=== PATIENT | male | born 2000 | race Caucasian/White ===

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

== ENCOUNTER 2018-02-23 17:51 | Inpatient (IN) | payer OTHER ==
[2018-02-23] MEDS ORDERED: Sodium Chloride 0.9% 2.5 ML Syringe FLUSH PRN (18:05)
[2018-02-23] MEDS ORDERED: Sodium Chloride 0.9% 10 ML Syringe FLUSH PRN (18:05)
[2018-02-23] MEDS ORDERED: Sodium Chloride 0.9% 1,000 ML IV ONE (18:05)
[2018-02-23] MEDS ORDERED: Ketorolac 30 MG/ML SDV IVPUSH ONE (18:22)
--- NOTE | 2018-02-23 18:23 | EDM.PDOC ---
ED HPI GENERAL MEDICAL PROBLEM - General Chief Complaint: Abdominal Pain Time Seen by Provider: 02/23/18 18:22 Source of Information: Reports: Patient History Limitations: Reports: No Limitations - History of Present Illness INITIAL COMMENTS - FREE TEXT/NARRATIVE: HISTORY AND PHYSICAL: History of present illness: Patient is a 17-year-old male who presents to the ED today for abdominal pain that started this morning around 7 AM. He states that he has had pain like this on and off for the past year or so and has seen multiple family medicine doctors who have said he has constipation. He said he has had a few x-rays in the past to evaluate this pain, but has not been happy with the answer he has been given. He says the pain is in his left lower quadrant and suprapubic area, and since this morning has been constant and sharp. In the past to set this pain has come and gone but today is the worst it's ever been. He states that he did have one episode of vomiting earlier today, and had blood in his vomit. He states he has not been able to eat or drink today due to a loss of appetite. He denies fever, chills, or weight changes. He denies scrotal tenderness, constipation, diarrhea, blood in his stool, burning with urination, difficulties urinating, or hesitancy to urinate. Review of systems: As per history of present illness and below otherwise all systems reviewed and negative. Past medical history: As per history of present illness and as reviewed below otherwise noncontributory. Surgical history: As per history of present illness and as reviewed below otherwise noncontributory. Social history: No reported history of drug or alcohol abuse. Family history: As per history of present illness and as reviewed below otherwise noncontributory. Physical exam: General: Patient is sitting comfortably on exam table, in no acute distress. HEENT: Atraumatic, normocephalic, pupils reactive, negative for conjunctival pallor or scleral icterus, mucous membranes moist, throat clear, neck supple, nontender, trachea midline. Lungs: Clear to auscultation, breath sounds equal bilaterally, chest nontender. Heart: S1S2, regular, negative for clicks, rubs, or JVD. Abdomen: Moderate pain to deep palpation of the suprapubic and left lower quadrant Soft, nondistended. Negative for masses or hepatosplenomegaly. Negative for costovertebral tenderness. Pelvis: Stable nontender. Genitourinary: Deferred. Rectal: Deferred. Extremities: Atraumatic, negative for cords or calf pain. Neurovascular unremarkable. Neuro: Awake, alert, oriented. Cranial nerves II through XII unremarkable. Cerebellum unremarkable. Motor and sensory unremarkable throughout. Exam nonfocal. Notes: 194 - discussed patient with Dr. Negro who will come in to evaluate patient. Diagnostics: [CBC, CMP, UA, abdominal and pelvic CT] Therapeutics: [IV normal saline, Toradol 30 mg IV] Impression: Mechanical small bowel obstruction Plan: Dr. Negro evaluated patient and admitted to inpatient. Definitive disposition and diagnosis as appropriate pending reevaluation and review of above. lower abdomen Pain Score (Numeric/FACES): 9 - Related Data Allergies Allergy/AdvReac Type Severity Reaction Status Date / Time Penicillins Allergy Hives Verified 02/23/18 18:16 Home Meds: Home Meds . [No Known Home Meds] 02/23/18 [History] Past Medical History - Past Health History Medical/Surgical History: Denies Medical/Surgical History Social & Family History - Family History Family Medical History: Noncontributory - Tobacco Use Smoking Status *Q: Never Smoker - Recreational Drug Use Recreational Drug Use: No ED ROS GENERAL - Review of Systems Review Of Systems: ROS reveals no pertinent complaints other than HPI. ED EXAM, GI/ABD - Physical Exam Exam: See Below (see dictation) Course - Vital Signs Last Recorded V/S: Last Vital Signs Temp 36.3 C 02/23/18 19:28 Pulse 76 02/23/18 19:28 Resp 18 02/23/18 19:28 BP 164/86 H 02/23/18 19:28 Pulse Ox 98 02/23/18 19:28 - Orders/Labs/Meds Orders: Active Orders 24 hr Category Date Time Status Patient Status [ADT] Stat ADT 02/23/18 20:52 Active Abdomen Pelvis w Cont [CT] Stat Exams 02/23/18 18:22 Taken UA W/MICROSCOPIC [URIN] Stat Lab 02/23/18 18:05 Ordered Sodium Chloride 0.9% [Saline Flush] Med 02/23/18 18:05 Active 10 ml FLUSH ASDIRECTED PRN Sodium Chloride 0.9% [Saline Flush] Med 02/23/18 18:05 Active 2.5 ml FLUSH ASDIRECTED PRN Saline Lock Insert [OM.PC] Stat Oth 02/23/18 18:04 Ordered Medication Orders Sodium Chloride (Saline Flush) 10 ml FLUSH ASDIRECTED PRN PRN Reason: Keep Vein Open Last Admin: 02/23/18 18:11 Dose: 10 ml Sodium Chloride (Saline Flush) 2.5 ml FLUSH ASDIRECTED PRN PRN Reason: Keep Vein Open Last Admin: 02/23/18 18:12 Dose: 2.5 ml Labs: Laboratory Tests 02/23/18 02/23/18 02/23/18 Range/Units 18:05 18:11 18:11 WBC 10.54 (4.0-11.0) K/uL RBC 5.24 (4.50-5.90) M/uL Hgb 15.7 (13.0-17.0) g/dL Hct 43.8 (38.0-50.0) % MCV 83.6 (80.0-98.0) fL MCH 30.0 (27.0-32.0) pg MCHC 35.8 (31.0-37.0) g/dL RDW Std Deviation 37.8 (28.0-62.0) fl RDW Coeff of Nahomy 13 (11.0-15.0) % Plt Count 233 (150-400) K/uL MPV 9.30 (7.40-12.00) fL Neut % (Auto) 69.5 (48.0-80.0) % Lymph % (Auto) 22.4 (16.0-40.0) % [place] % (Auto) 6.4 (0.0-15.0) % Eos % (Auto) 1.4 (0.0-7.0) % Baso % (Auto) 0.3 (0.0-1.5) % Neut # (Auto) 7.3 H (1.4-5.7) K/uL Lymph # (Auto) 2.4 (0.6-2.4) K/uL [place] # (Auto) 0.7 (0.0-0.8) K/uL Eos # (Auto) 0.2 (0.0-0.7) K/uL Baso # (Auto) 0.0 (0.0-0.1) K/uL Nucleated RBC % 0.0 /100WBC Nucleated RBCs # 0 K/uL Sodium 138 (136-148) mmol/L Potassium 3.9 (3.5-5.1) mmol/L Chloride 102 (98-107) mmol/L Carbon Dioxide 27.1 (21.0-32.0) mmol/L BUN 15 (7.0-18.0) mg/dL Creatinine 1.0 (0.8-1.3) mg/dL Est Cr Clr Drug Dosing 142.01 mL/min Estimated GFR (MDRD) > 60.0 ml/min Glucose 103 (74-106) mg/dL Calcium 9.3 (8.5-10.1) mg/dL Total Bilirubin 0.7 (0.2-1.0) mg/dL AST 19 (15-37) IU/L ALT 29 (14-63) IU/L Alkaline Phosphatase 91 (46-116) U/L Total Protein 8.4 H (6.4-8.2) g/dL Albumin 4.8 (3.4-5.0) g/dL Globulin 3.6 H (2.0-3.5) g/dL Albumin/Globulin Ratio 1.3 (1.3-2.8) Lipase 82 (73-393) U/L Urine Color YELLOW Urine Appearance CLEAR Urine pH 5.5 (5.0-8.0) Ur Specific [place] >= 1.030 (1.001-1.035) Urine Protein NEGATIVE (NEGATIVE) mg/dL Urine Glucose (UA) NEGATIVE (NEGATIVE) mg/dL Urine Ketones NEGATIVE (NEGATIVE) mg/dL Urine Occult Blood NEGATIVE (NEGATIVE) Urine Nitrite NEGATIVE (NEGATIVE) Urine Bilirubin NEGATIVE (NEGATIVE) Urine Urobilinogen 0.2 (<2.0) EU/dL Ur Leukocyte Esterase NEGATIVE (NEGATIVE) Urine RBC 0-2 (0-2/HPF) Urine WBC 0-2 (0-5/HPF) Ur Epithelial Cells RARE (NONE-FEW) Urine Bacteria FEW (NEGATIVE) Urine Mucus MODERATE (NONE-MOD) Meds: Medications Generic Name Dose Route Start Last Admin Trade Name Freq PRN Reason Stop Dose Admin Sodium Chloride 10 ml 02/23/18 18:05 02/23/18 18:11 Saline Flush FLUSH 10 ml ASDIRECTED PRN Administration Keep Vein Open Sodium Chloride 2.5 ml 07/16/18 18:05 02/23/18 18:12 Saline Flush FLUSH 2.5 ml ASDIRECTED PRN Administration Keep Vein Open Discontinued Medications Generic Name Dose Route Start Last Admin Trade Name Freq PRN Reason Stop Dose Admin Benzocaine 2 each 02/23/18 20:27 02/23/18 20:53 Hurricaine One 20% MUCMEM 02/23/18 20:28 2 each ONETIME ONE Administration Bisacodyl 10 mg 02/23/18 20:38 02/23/18 20:43 Dulcolax RECTAL 02/23/18 20:39 10 mg ONETIME ONE Administration Sodium Chloride 1,000 mls @ 999 mls/hr 02/23/18 18:05 02/23/18 18:17 Normal Saline IV 02/23/18 19:05 999 mls/hr STAT ONE Administration Iopamidol 100 ml 02/23/18 19:14 02/23/18 19:15 Isovue Multipack-370 (76%) IVPUSH 02/23/18 19:15 100 ml ONETIME STA Administration Ketorolac Tromethamine 30 mg 02/23/18 18:22 02/23/18 18:29 Toradol IVPUSH 02/23/18 18:23 30 mg ONETIME ONE Administration Morphine Sulfate 2 mg 02/23/18 19:30 02/23/18 19:37 Morphine IVPUSH 02/23/18 19:31 2 mg ONETIME ONE Administration Morphine Sulfate 2 mg 02/23/18 20:10 02/23/18 20:14 Morphine IVPUSH 02/23/18 20:11 2 mg ONETIME ONE Administration Departure - Departure Time of Disposition: 20:59 Disposition: Refer to Observation Condition: Good Clinical Impression: Intestinal obstruction - Discharge Information Referrals: PCP,None [Primary Care Provider] - Forms: ED Department Discharge - My Orders Last 24 Hours: My Active Orders 02/23/18 18:04 Saline Lock Insert [OM.PC] Stat 02/23/18 18:05 UA W/MICROSCOPIC [URIN] Stat Sodium Chloride 0.9% [Saline Flush] 10 ml FLUSH ASDIRECTED PRN Sodium Chloride 0.9% [Saline Flush] 2.5 ml FLUSH ASDIRECTED PRN 02/23/18 18:22 Abdomen Pelvis w Cont [CT] Stat - Assessment/Plan Last 24 Hours: My Active Orders 02/23/18 18:04 Saline Lock Insert [OM.PC] Stat 02/23/18 18:05 UA W/MICROSCOPIC [URIN] Stat Sodium Chloride 0.9% [Saline Flush] 10 ml FLUSH ASDIRECTED PRN Sodium Chloride 0.9% [Saline Flush] 2.5 ml FLUSH ASDIRECTED PRN 02/23/18 18:22 Abdomen Pelvis w Cont [CT] Stat
[2018-02-23 18:43] LABS: CHLORIDE,CL 102 mmol/L (98-107); SODIUM,NA 138 mmol/L (136-148)
[2018-02-23] MEDS ORDERED: Iopamidol 755 MG/ML 500 ML Multipack Bottle IVPUSH STA (19:14)
[2018-02-23] MEDS ORDERED: Morphine 2 MG/ML Syringe IVPUSH ONE ×2 (19:30→20:10)
[2018-02-23] MEDS ORDERED: Benzocaine 20% Topical Spray UD MUCMEM ONE (20:27)
[2018-02-23] MEDS ORDERED: Bisacodyl 10 MG Supp RECTAL ONE (20:38)
[2018-02-23] MEDS ORDERED: Acetaminophen/oxyCODONE 325-5 MG Tab PO PRN (21:18)
[2018-02-23] MEDS: Lactated Ringers 1,000 ML IV SCH (21:20)
[2018-02-23] MEDS: Pantoprazole 40 MG Vial IVPUSH SCH (21:21)
[2018-02-23] MEDS ORDERED: Phenol 1.4% Oral Spray 177 ML Bottle MUCMEM PRN (22:10)
[2018-02-23] MEDS ORDERED: Ondansetron 4 MG/2 ML SDV IVPUSH PRN (22:10)
[2018-02-23] MEDS ORDERED: LORazepam 2 MG/ML SDV IVPUSH ONE (22:52)
[2018-02-23] MEDS ORDERED: Morphine 2 MG/ML Syringe IM ONE (22:52)
[2018-02-23] MEDS ORDERED: LORazepam 2 MG/ML SDV ONE (22:56)
[2018-02-23] MEDS ORDERED: Morphine 2 MG/ML Syringe ONE (22:56)
[2018-02-23] MEDS ORDERED: cefOXitin 2 GM in Sodium Chloride 0.9% 50 ML IV ONE (23:03)
[2018-02-23] MEDS ORDERED: Levofloxacin/Dextrose 5%-Water 750 MG in Premix Bag 1 BAG IV ONE (23:07)
--- NOTE | 2018-02-23 23:13 | PCM.SN ---
- Free Text/Narrative Note: nursing staff called, pt in severe pain; went in see the pt; pt asking for surgery; increased pain; increased wbc, ngt not helping; proceed with exploratory laparotomy; pt also asked for 2nd opinion and transfer, will give assistance in transfer to hosp of pt's choice; fam member discussion for 10 min , and came to nursing station, to reverse decision and proceed with surgery here.; rb dw pt re bleeding/infection/damage to nearby organs, pt concurred and proceed
--- NOTE | 2018-02-23 23:19 | PCM.PREANE ---
Preanesthetic Assessment - Anesthesia/Transfusion/Family Hx Anesthesia History: No Prior Anesthesia Family History of Anesthesia Reaction: No Transfusion History: No Prior Transfusion(s) - Review of Systems General: Other (Severe abd Pain) Pulmonary: No Symptoms Cardiovascular: No Symptoms Gastrointestinal: No Symptoms Neurological: No Symptoms Other: Reports: None - Physical Assessment NPO Status Date: 02/23/18 NPO Status Time: 03:00 O2 Sat by Pulse Oximetry: 99 Respiratory Rate: 20 Blood Pressure: 142/93 Vital Signs: Last Vital Signs Temp 97.4 F 02/23/18 19:28 Pulse 75 02/23/18 21:05 Resp 20 02/23/18 21:05 BP 142/92 H 02/23/18 21:05 Pulse Ox 99 02/23/18 21:05 Height: 6 ft 3 in Weight: 88.36 kg ASA Class: 1E Mental Status: Alert & Oriented x3 Airway Class: Mallampati = 1 Dentition: Reports: Normal Dentition Thyro-Mental Finger Breadths: 3 Mouth Opening Finger Breadths: 3 ROM/Head Extension: Full Lungs: Clear to Auscultation, Normal Respiratory Effort Cardiovascular: Regular Rate, Regular Rhythm - Lab Values: Laboratory Last Values WBC 14.90 K/uL (4.0-11.0) H 02/23/18 22:15 RBC 4.98 M/uL (4.50-5.90) 02/23/18 22:15 Hgb 15.1 g/dL (13.0-17.0) 02/23/18 22:15 Hct 41.6 % (38.0-50.0) 02/23/18 22:15 MCV 83.5 fL (80.0-98.0) 02/23/18 22:15 MCH 30.3 pg (27.0-32.0) 02/23/18 22:15 MCHC 36.3 g/dL (31.0-37.0) 02/23/18 22:15 RDW Std Deviation 37.7 fl (28.0-62.0) 02/23/18 22:15 RDW Coeff of Nahomy 13 % (11.0-15.0) 02/23/18 22:15 Plt Count 239 K/uL (150-400) 02/23/18 22:15 MPV 9.40 fL (7.40-12.00) 02/23/18 22:15 Neut % (Auto) 86.1 % (48.0-80.0) H 02/23/18 22:15 Lymph % (Auto) 9.7 % (16.0-40.0) L 02/23/18 22:15 [place] % (Auto) 4.0 % (0.0-15.0) 02/23/18 22:15 Eos % (Auto) 0.1 % (0.0-7.0) 02/23/18 22:15 Baso % (Auto) 0.1 % (0.0-1.5) 02/23/18 22:15 Neut # (Auto) 12.8 K/uL (1.4-5.7) H 02/23/18 22:15 Lymph # (Auto) 1.5 K/uL (0.6-2.4) 02/23/18 22:15 [place] # (Auto) 0.6 K/uL (0.0-0.8) 02/23/18 22:15 Eos # (Auto) 0.0 K/uL (0.0-0.7) 02/23/18 22:15 Baso # (Auto) 0.0 K/uL (0.0-0.1) 02/23/18 22:15 Nucleated RBC % 0.0 /100WBC 02/23/18 22:15 Nucleated RBCs # 0 K/uL 02/23/18 22:15 Lactate 1.4 mmol/L (0.20-2.00) 02/23/18 22:26 Sodium 138 mmol/L (136-148) 02/23/18 18:11 Potassium 3.9 mmol/L (3.5-5.1) 02/23/18 18:11 Chloride 102 mmol/L (98-107) 02/23/18 18:11 Carbon Dioxide 27.1 mmol/L (21.0-32.0) 02/23/18 18:11 BUN 15 mg/dL (7.0-18.0) 02/23/18 18:11 Creatinine 1.0 mg/dL (0.8-1.3) 02/23/18 18:11 Est Cr Clr Drug Dosing 142.01 mL/min 02/23/18 18:11 Estimated GFR (MDRD) > 60.0 ml/min 02/23/18 18:11 Glucose 103 mg/dL (74-106) 02/23/18 18:11 Calcium 9.3 mg/dL (8.5-10.1) 02/23/18 18:11 Total Bilirubin 0.7 mg/dL (0.2-1.0) 02/23/18 18:11 AST 19 IU/L (15-37) 02/23/18 18:11 ALT 29 IU/L (14-63) 02/23/18 18:11 Alkaline Phosphatase 91 U/L (46-116) 02/23/18 18:11 Total Protein 8.4 g/dL (6.4-8.2) H 02/23/18 18:11 Albumin 4.8 g/dL (3.4-5.0) 02/23/18 18:11 Globulin 3.6 g/dL (2.0-3.5) H 02/23/18 18:11 Albumin/Globulin Ratio 1.3 (1.3-2.8) 02/23/18 18:11 Lipase 82 U/L (73-393) 02/23/18 18:11 Urine Color YELLOW 02/23/18 18:05 Urine Appearance CLEAR 02/23/18 18:05 Urine pH 5.5 (5.0-8.0) 02/23/18 18:05 Ur Specific [place] >= 1.030 (1.001-1.035) 02/23/18 18:05 Urine Protein NEGATIVE mg/dL (NEGATIVE) 02/23/18 18:05 Urine Glucose (UA) NEGATIVE mg/dL (NEGATIVE) 02/23/18 18:05 Urine Ketones NEGATIVE mg/dL (NEGATIVE) 02/23/18 18:05 Urine Occult Blood NEGATIVE (NEGATIVE) 02/23/18 18:05 Urine Nitrite NEGATIVE (NEGATIVE) 02/23/18 18:05 Urine Bilirubin NEGATIVE (NEGATIVE) 02/23/18 18:05 Urine Urobilinogen 0.2 EU/dL (<2.0) 02/23/18 18:05 Ur Leukocyte Esterase NEGATIVE (NEGATIVE) 02/23/18 18:05 Urine RBC 0-2 (0-2/HPF) 02/23/18 18:05 Urine WBC 0-2 (0-5/HPF) 02/23/18 18:05 Ur Epithelial Cells RARE (NONE-FEW) 02/23/18 18:05 Urine Bacteria FEW (NEGATIVE) 02/23/18 18:05 Urine Mucus MODERATE (NONE-MOD) 02/23/18 18:05 - Allergies Allergies/Adverse Reactions: Allergies Allergy/AdvReac Type Severity Reaction Status Date / Time Penicillins Allergy Hives Verified 02/23/18 18:16 - Anesthesia Plan Free Text/Narrative:: Suspected internal hernia with SBO, on exam pt is thrashing all over the bed saying the pain us unbearable. Pt is also asking to be put to sleep as soon as possible. Health history was obtained from the patient and his aunt as the patient has obtained Ativan and multiple doses of morphine. Risks and benefits were reviewed and at this time the patient and his family agree with the anesthetic plan and wish to proceed. - Acknowledgements Anesthesia Type Planned: General Anesthesia (RSI) Pt an Appropriate Candidate for the Planned Anesthesia: Yes Alternatives and Risks of Anesthesia Discussed w Pt/Guardian: Yes Pt/Guardian Understands and Agrees with Anesthesia Plan: Yes PreAnesthesia Questionnaire - Past Health History Medical/Surgical History: Denies Medical/Surgical History HEENT History: Reports: None Cardiovascular History: Reports: Hypertension Respiratory History: Reports: None Gastrointestinal History: Reports: Bowel Obstruction Genitourinary History: Reports: None Musculoskeletal History: Reports: None Neurological History: Reports: None Psychiatric History: Reports: None Endocrine/Metabolic History: Reports: None Hematologic History: Reports: None Immunologic History: Reports: None Oncologic (Cancer) History: Reports: None Dermatologic History: Reports: None - Infectious Disease History Infectious Disease History: Reports: None - SUBSTANCE USE Smoking Status *Q: Never Smoker Recreational Drug Use History: No - HOME MEDS Home Medications: Home Meds . [No Known Home Meds] 02/23/18 [History] - CURRENT (IN HOUSE) MEDS Current Meds: Current Medications Acetaminophen (Tylenol) 650 mg RECTAL Q6H PRN PRN Reason: Pain Lactated Ringer's (Ringers, Lactated) 1,000 mls @ 150 mls/hr IV ASDIRECTED ALEXANDAR Last Admin: 02/23/18 21:20 Dose: 150 mls/hr Levofloxacin/Dextrose 750 mg/ (Premix) 150 mls @ 100 mls/hr IV ONETIME ONE Stop: 02/24/18 00:36 Ondansetron HCl (Zofran) 4 mg IVPUSH Q8H PRN PRN Reason: Nausea/Vomiting Oxycodone/Acetaminophen (Percocet 325-5 Mg) 1 tab PO Q6H PRN PRN Reason: Breakthrough Pain Last Admin: 02/23/18 21:30 Dose: 1 tab Pantoprazole Sodium (Protonix Iv) 40 mg IVPUSH DAILY ALEXANDRA Last Admin: 02/23/18 21:21 Dose: 40 mg Phenol/Menthol (Chloraseptic Throat [place]) 1 ml MUCMEM Q4H PRN PRN Reason: Sore Throat Sodium Chloride (Saline Flush) 10 ml FLUSH ASDIRECTED PRN PRN Reason: Keep Vein Open Last Admin: 02/23/18 18:11 Dose: 10 ml Sodium Chloride (Saline Flush) 2.5 ml FLUSH ASDIRECTED PRN PRN Reason: Keep Vein Open Last Admin: 02/23/18 18:12 Dose: 2.5 ml Discontinued Medications Benzocaine (Hurricaine One 20%) 2 each MUCMEM ONETIME ONE Stop: 02/23/18 20:28 Last Admin: 02/23/18 20:53 Dose: 2 each Bisacodyl (Dulcolax) 10 mg RECTAL ONETIME ONE Stop: 02/23/18 20:39 Last Admin: 02/23/18 20:43 Dose: 10 mg Sodium Chloride (Normal Saline) 1,000 mls @ 999 mls/hr IV STAT ONE Stop: 02/23/18 19:05 Last Admin: 02/23/18 18:17 Dose: 999 mls/hr Cefoxitin Sodium 2 gm/ Sodium (Chloride) 50 mls @ 100 mls/hr IV ONETIME ONE Stop: 02/23/18 23:32 Last Admin: 02/23/18 23:12 Dose: Not Given Iopamidol (Isovue Multipack-370 (76%)) 100 ml IVPUSH ONETIME STA Stop: 02/23/18 19:15 Last Admin: 02/23/18 19:15 Dose: 100 ml Ketorolac Tromethamine (Toradol) 30 mg IVPUSH ONETIME ONE Stop: 02/23/18 18:23 Last Admin: 02/23/18 18:29 Dose: 30 mg Lorazepam (Ativan) 2 mg IVPUSH ONETIME ONE Stop: 02/23/18 22:53 Last Admin: 02/23/18 23:08 Dose: 2 mg Lorazepam (Ativan) Confirm Administered Dose 2 mg .ROUTE .STK-MED ONE Stop: 02/23/18 22:57 Last Admin: 02/23/18 23:11 Dose: 2 mg Morphine Sulfate (Morphine) 2 mg IVPUSH ONETIME ONE Stop: 02/23/18 19:31 Last Admin: 02/23/18 19:37 Dose: 2 mg Morphine Sulfate (Morphine) 2 mg IVPUSH ONETIME ONE Stop: 02/23/18 20:11 Last Admin: 02/23/18 20:14 Dose: 2 mg Morphine Sulfate (Morphine) 2 mg IM ONETIME ONE Stop: 02/23/18 22:53 Last Admin: 02/23/18 23:09 Dose: 2 mg Morphine Sulfate (Morphine) Confirm Administered Dose 2 mg .ROUTE .STK-MED ONE Stop: 02/23/18 22:57 Last Admin: 02/23/18 23:12 Dose: 2 mg
[2018-02-23] MEDS ORDERED: Midazolam 1 MG/ML 2 ML SDV ONE (23:29)
[2018-02-23] MEDS ORDERED: fentaNYL 250 MCG/5 ML SDV ONE (23:29)
[2018-02-23] MEDS ORDERED: Rocuronium 10 MG/ML 10 ML Syringe ONE (23:29)
[2018-02-23] MEDS ORDERED: Ondansetron 4 MG/2 ML SDV ONE (23:29)
[2018-02-23] MEDS ORDERED: Propofol 200 MG/20 ML SDV ONE (23:29)
[2018-02-23] MEDS ORDERED: Lidocaine 2% 5 ML SDV ONE (23:29)
[2018-02-23] MEDS ORDERED: Succinylcholine 200 MG/10 ML MDV ONE (23:29)
[2018-02-24] MEDS ORDERED: Phenylephrine/Normal Saline 100 MCG/ML 10 ML Syringe ONE (00:33)
[2018-02-24] MEDS ORDERED: ePHEDrine 50 MG/ML SDV ONE (00:34)
[2018-02-24] MEDS ORDERED: fentaNYL 100 MCG/2 ML SDV IVPUSH PRN (00:44)
[2018-02-24] MEDS ORDERED: fentaNYL 100 MCG/2 ML SDV ONE (01:37)
[2018-02-24] MEDS ORDERED: Neostigmine Methylsulfate 1 MG/ML 5 ML Syringe ONE (02:24)
[2018-02-24] MEDS ORDERED: Glycopyrrolate 0.2 MG/ML SDV ONE (02:24)
[2018-02-24] MEDS ORDERED: Ondansetron 4 MG/2 ML SDV IVPUSH PRN (03:10)
--- NOTE | 2018-02-24 03:18 | PCM.OPNOTE ---
- General Post-Op/Procedure Note Date of Surgery/Procedure: 02/24/18 Operative Procedure(s): 1) ex lap. 2) reduction and repair of internal hernia Findings: a small segment of jejunum was herniad into an internal hernia, and caused mechanical bowel obstruction; it was reduced, and hernia repaired Pre Op Diagnosis: sbo Post-Op Diagnosis: Same Anesthesia Technique: General ET Tube Primary Surgeon: Jun Negro Secondary Surgeon: Juvenal Phillips Complications: None Condition: Fair Free Text/Narrative:: Intake & Output 02/23/18 02/23/18 02/24/18 14:59 22:59 06:59 Intake Total 470 Output Total 80 Balance 390
[2018-02-24] MEDS: Morphine PF 30 MG/30 ML PCA Vial IV PRN ×2 (04:02→23:29)
[2018-02-24] MEDS: Lactated Ringers 1,000 ML IV SCH ×3 (04:39→18:16)
[2018-02-24 06:22] LABS: CHLORIDE,CL 102 mmol/L (98-107); SODIUM,NA 137 mmol/L (136-148)
--- NOTE | 2018-02-24 07:12 | PCM.POSTAN ---
POST ANESTHESIA ASSESSMENT - MENTAL STATUS Mental Status: Alert, Oriented - RESPIRATORY Respiratory Status: Respiratory Rate WNL, Airway Patent, O2 Saturation Stable - CARDIOVASCULAR CV Status: Pulse Rate WNL, Blood Pressure Stable - GASTROINTESTINAL GI Status: No Symptoms - PAIN Pain Score: 2 - POST OP HYDRATION Hydration Status: Adequate & Stable
--- NOTE | 2018-02-24 07:13 | PCM48HPAN ---
Post Anesthesia Note - EVALUATION WITHIN 48HRS OF ANESTHETIC Vital Signs in Normal Range: Yes Patient Participated in Evaluation: Yes Respiratory Function Stable: Yes Airway Patent: Yes Cardiovascular Function Stable: Yes Hydration Status Stable: Yes Pain Control Satisfactory: Yes Nausea and Vomiting Control Satisfactory: Yes Mental Status Recovered: Yes Resp Rate: 16 Blood Pressure: 142/93
[2018-02-24] MEDS: Pantoprazole 40 MG Vial IVPUSH SCH (08:18)
--- NOTE | 2018-02-24 08:26 | HP ---
DATE OF : 2000 PRIMARY CARE PHYSICIAN: None PCP CONCERNING QUESTION: Small bowel obstruction. HISTORY OF PRESENT ILLNESS: The patient is a 17-year-old gentleman, who complained of on and off problem with constipation, abdominal pain for about 1 year. The situation was getting worse in the last 12 hours with increased pain and came to seek help in the emergency room. The patient denied bright red blood per rectum. Denied prior surgery. Pain is periumbilical. CAT scan performed with IV contrast, no p.o. contrast, suggests possible internal hernia and causing a mechanical SBO. No evidence of perforation, abscess formation, or bowel thickening. White count of 10.5. Currently, the patient is still experiencing pain, but no longer nauseated. The patient remarked that he probably did not have bowel movement for about 2 days. Denied ever passing gas since in the emergency room. ALLERGIES: Please refer to nursing for details. MEDICATION: Please refer to nursing for details. PAST SURGICAL HISTORY: No abdominal surgery in the past. FAMILY HISTORY: Noncontributory. REVIEW OF SYSTEMS: Same as in history of present illness. PHYSICAL EXAMINATION: GENERAL: A very pleasant, nice, young gentleman, sitting on the edge of the bed, and sometimes pacing in the room, and complained about pain. The patient already had 2 mg of Dilaudid. HEENT: Normocephalic and atraumatic. Sclerae anicteric. LUNGS: Clear to auscultation. HEART: Regular rate and rhythm. ABDOMEN: Guarding. Tender at the left lower quadrant. No rebound tenderness. No surgical scar. No umbilical hernia. No pulsating midline abdominal structure. LABORATORY DATA: White count 10.5. CAT scan has alluded to consider a mechanical small-bowel obstruction. IMPRESSION: A 17-year-old young gentleman with 1 year history of on and off constipation. CAT scan shows internal hernia without prior surgery. Time being, white count is normal, and pain is wax and wane. We will attempt to put an NG tube and give some Dulcolax per rectum, and may repeat the CAT scan with p.o. contrast using Gastrografin after discussed with the Radiology. We will follow with x-ray in the morning and serial abdominal exam. PRO / CARIN /[id number]
[2018-02-24] MEDS ORDERED: Diazepam 5 MG/ML 10 ML Vial MDV IV PRN (09:18)
--- NOTE | 2018-02-24 09:56 | PCM.SURGPN ---
- General Info Date of Service: 02/24/18 POD#: 0 Admission Diagnosis/Problem: Hernia Functional Status: Reports: Pain Controlled - Review of Systems General: Reports: No Symptoms (no flatus) - Patient Data Vitals - Most Recent: Last Vital Signs Temp 98.7 F 02/24/18 03:50 Pulse 97 02/24/18 08:00 Resp 16 02/24/18 08:00 BP 126/59 L 02/24/18 08:00 Pulse Ox 96 02/24/18 08:00 Weight - Most Recent: 194 lb 12.8 oz I&O - Last 24 Hours: Intake & Output 02/23/18 02/24/18 02/24/18 22:59 06:59 14:59 Intake Total 3372 553 Output Total 645 1000 Balance 2405 -447 Lab Results Last 24 Hrs: Laboratory Results - last 24 hr 02/23/18 02/23/18 02/23/18 Range/Units 18:05 18:11 18:11 WBC 10.54 (4.0-11.0) K/uL RBC 5.24 (4.50-5.90) M/uL Hgb 15.7 (13.0-17.0) g/dL Hct 43.8 (38.0-50.0) % MCV 83.6 (80.0-98.0) fL MCH 30.0 (27.0-32.0) pg MCHC 35.8 (31.0-37.0) g/dL RDW Std Deviation 37.8 (28.0-62.0) fl RDW Coeff of [place] 13 (11.0-15.0) % Plt Count 233 (150-400) K/uL MPV 9.30 (7.40-12.00) fL Neut % (Auto) 69.5 (48.0-80.0) % Lymph % (Auto) 22.4 (16.0-40.0) % [place] % (Auto) 6.4 (0.0-15.0) % Eos % (Auto) 1.4 (0.0-7.0) % Baso % (Auto) 0.3 (0.0-1.5) % Neut # (Auto) 7.3 H (1.4-5.7) K/uL Lymph # (Auto) 2.4 (0.6-2.4) K/uL [place]utter # (Auto) 0.7 (0.0-0.8) K/uL Eos # (Auto) 0.2 (0.0-0.7) K/uL Baso # (Auto) 0.0 (0.0-0.1) K/uL Nucleated RBC % 0.0 /100WBC Nucleated RBCs # 0 K/uL Lactate (0.20-2.00) mmol/L Sodium 138 (136-148) mmol/L Potassium 3.9 (3.5-5.1) mmol/L Chloride 102 (98-107) mmol/L Carbon Dioxide 27.1 (21.0-32.0) mmol/L BUN 15 (7.0-18.0) mg/dL Creatinine 1.0 (0.8-1.3) mg/dL Est Cr Clr Drug Dosing 142.01 mL/min Estimated GFR (MDRD) > 60.0 ml/min Glucose 103 (74-106) mg/dL Calcium 9.3 (8.5-10.1) mg/dL Total Bilirubin 0.7 (0.2-1.0) mg/dL AST 19 (15-37) IU/L ALT 29 (14-63) IU/L Alkaline Phosphatase 91 (46-116) U/L Total Protein 8.4 H (6.4-8.2) g/dL Albumin 4.8 (3.4-5.0) g/dL Globulin 3.6 H (2.0-3.5) g/dL Albumin/Globulin Ratio 1.3 (1.3-2.8) Lipase 82 (73-393) U/L Urine Color YELLOW Urine Appearance CLEAR Urine pH 5.5 (5.0-8.0) Ur Specific [place] >= 1.030 (1.001-1.035) Urine Protein NEGATIVE (NEGATIVE) mg/dL Urine Glucose (UA) NEGATIVE (NEGATIVE) mg/dL Urine Ketones NEGATIVE (NEGATIVE) mg/dL Urine Occult Blood NEGATIVE (NEGATIVE) Urine Nitrite NEGATIVE (NEGATIVE) Urine Bilirubin NEGATIVE (NEGATIVE) Urine Urobilinogen 0.2 (<2.0) EU/dL Ur Leukocyte Esterase NEGATIVE (NEGATIVE) Urine RBC 0-2 (0-2/HPF) Urine WBC 0-2 (0-5/HPF) Ur Epithelial Cells RARE (NONE-FEW) Urine Bacteria FEW (NEGATIVE) Urine Mucus MODERATE (NONE-MOD) 02/23/18 02/23/18 02/24/18 Range/Units 22:15 22:26 05:30 WBC 14.90 H 14.57 H (4.0-11.0) K/uL RBC 4.98 4.88 (4.50-5.90) M/uL Hgb 15.1 14.5 (13.0-17.0) g/dL Hct 41.6 41.4 (38.0-50.0) % MCV 83.5 84.8 (80.0-98.0) fL MCH 30.3 29.7 (27.0-32.0) pg MCHC 36.3 35.0 (31.0-37.0) g/dL RDW Std Deviation 37.7 38.2 (28.0-62.0) fl RDW Coeff of [place] 13 13 (11.0-15.0) % Plt Count 239 217 (150-400) K/uL MPV 9.40 9.50 (7.40-12.00) fL Neut % (Auto) 86.1 H 85.9 H (48.0-80.0) % Lymph % (Auto) 9.7 L 8.6 L (16.0-40.0) % Sutter % (Auto) 4.0 5.4 (0.0-15.0) % Eos % (Auto) 0.1 0.0 (0.0-7.0) % Baso % (Auto) 0.1 0.1 (0.0-1.5) % Neut # (Auto) 12.8 H 12.5 H (1.4-5.7) K/uL Lymph # (Auto) 1.5 1.3 (0.6-2.4) K/uL Sutter # (Auto) 0.6 0.8 (0.0-0.8) K/uL Eos # (Auto) 0.0 0.0 (0.0-0.7) K/uL Baso # (Auto) 0.0 0.0 (0.0-0.1) K/uL Nucleated RBC % 0.0 0.0 /100WBC Nucleated RBCs # 0 0 K/uL Lactate 1.4 (0.20-2.00) mmol/L Sodium (136-148) mmol/L Potassium (3.5-5.1) mmol/L Chloride (98-107) mmol/L Carbon Dioxide (21.0-32.0) mmol/L BUN (7.0-18.0) mg/dL Creatinine (0.8-1.3) mg/dL Est Cr Clr Drug Dosing mL/min Estimated GFR (MDRD) ml/min Glucose (74-106) mg/dL Calcium (8.5-10.1) mg/dL Total Bilirubin (0.2-1.0) mg/dL AST (15-37) IU/L ALT (14-63) IU/L Alkaline Phosphatase (46-116) U/L Total Protein (6.4-8.2) g/dL Albumin (3.4-5.0) g/dL Globulin (2.0-3.5) g/dL Albumin/Globulin Ratio (1.3-2.8) Lipase (73-393) U/L Urine Color Urine Appearance Urine pH (5.0-8.0) Ur Specific [place] (1.001-1.035) Urine Protein (NEGATIVE) mg/dL Urine Glucose (UA) (NEGATIVE) mg/dL Urine Ketones (NEGATIVE) mg/dL Urine Occult Blood (NEGATIVE) Urine Nitrite (NEGATIVE) Urine Bilirubin (NEGATIVE) Urine Urobilinogen (<2.0) EU/dL Ur Leukocyte Esterase (NEGATIVE) Urine RBC (0-2/HPF) Urine WBC (0-5/HPF) Ur Epithelial Cells (NONE-FEW) Urine Bacteria (NEGATIVE) Urine Mucus (NONE-MOD) 02/24/18 Range/Units 05:30 WBC (4.0-11.0) K/uL RBC (4.50-5.90) M/uL Hgb (13.0-17.0) g/dL Hct (38.0-50.0) % MCV (80.0-98.0) fL MCH (27.0-32.0) pg MCHC (31.0-37.0) g/dL RDW Std Deviation (28.0-62.0) fl RDW Coeff of [place]omy (11.0-15.0) % Plt Count (150-400) K/uL MPV (7.40-12.00) fL Neut % (Auto) (48.0-80.0) % Lymph % (Auto) (16.0-40.0) % Sutter % (Auto) (0.0-15.0) % Eos % (Auto) (0.0-7.0) % Baso % (Auto) (0.0-1.5) % Neut # (Auto) (1.4-5.7) K/uL Lymph # (Auto) (0.6-2.4) K/uL Sutter # (Auto) (0.0-0.8) K/uL Eos # (Auto) (0.0-0.7) K/uL Baso # (Auto) (0.0-0.1) K/uL Nucleated RBC % /100WBC Nucleated RBCs # K/uL Lactate (0.20-2.00) mmol/L Sodium 137 (136-148) mmol/L Potassium 4.3 (3.5-5.1) mmol/L Chloride 102 (98-107) mmol/L Carbon Dioxide 26.5 (21.0-32.0) mmol/L BUN 11 (7.0-18.0) mg/dL Creatinine 0.8 (0.8-1.3) mg/dL Est Cr Clr Drug Dosing 177.51 mL/min Estimated GFR (MDRD) > 60.0 ml/min Glucose 146 H (74-106) mg/dL Calcium 8.5 (8.5-10.1) mg/dL Total Bilirubin 0.7 (0.2-1.0) mg/dL AST 18 (15-37) IU/L ALT 26 (14-63) IU/L Alkaline Phosphatase 74 (46-116) U/L Total Protein 6.4 (6.4-8.2) g/dL Albumin 3.6 (3.4-5.0) g/dL Globulin 2.8 (2.0-3.5) g/dL Albumin/Globulin Ratio 1.3 (1.3-2.8) Lipase (73-393) U/L Urine Color Urine Appearance Urine pH (5.0-8.0) Ur Specific [place] (1.001-1.035) Urine Protein (NEGATIVE) mg/dL Urine Glucose (UA) (NEGATIVE) mg/dL Urine Ketones (NEGATIVE) mg/dL Urine Occult Blood (NEGATIVE) Urine Nitrite (NEGATIVE) Urine Bilirubin (NEGATIVE) Urine Urobilinogen (<2.0) EU/dL Ur Leukocyte Esterase (NEGATIVE) Urine RBC (0-2/HPF) Urine WBC (0-5/HPF) Ur Epithelial Cells (NONE-FEW) Urine Bacteria (NEGATIVE) Urine Mucus (NONE-MOD) Med Orders - Current: Current Medications Acetaminophen (Tylenol) 650 mg RECTAL Q6H PRN PRN Reason: Pain Diazepam (Valium) 2 mg IV DAILY PRN PRN Reason: Spasms Last Admin: 02/24/18 09:46 Dose: 2 mg Fentanyl (Sublimaze) 50 mcg IVPUSH Q5M PRN PRN Reason: Pain (severe 7-10) Stop: 02/25/18 00:44 Last Admin: 02/24/18 03:25 Dose: 50 mcg Lactated Ringer's (Ringers, Lactated) 1,000 mls @ 150 mls/hr IV ASDIRECTED [facility] Last Admin: 02/23/18 21:20 Dose: 150 mls/hr Lactated Ringer's (Ringers, Lactated) 1,000 mls @ 150 mls/hr IV ASDIRECTED [facility] Last Admin: 02/24/18 04:39 Dose: 150 mls/hr Morphine Sulfate (Morphine Roll Tube Setter 30 Mg In 30 Ml) 0 mg IV ASDIRECTED PRN; Protocol PRN Reason: Pain (severe 7-10) Last Admin: 02/24/18 04:02 Dose: 30 mg Ondansetron HCl (Zofran) 4 mg IVPUSH Q8H PRN PRN Reason: Nausea/Vomiting Oxycodone/Acetaminophen (Percocet 325-5 Mg) 1 tab PO Q6H PRN PRN Reason: Breakthrough Pain Last Admin: 02/23/18 21:30 Dose: 1 tab Pantoprazole Sodium (Protonix Iv) 40 mg IVPUSH DAILY [facility] Last Admin: 02/24/18 08:18 Dose: 40 mg Phenol/Menthol (Chloraseptic Throat [place]) 1 ml MUCMEM Q4H PRN PRN Reason: Sore Throat Sodium Chloride (Saline Flush) 10 ml FLUSH ASDIRECTED PRN PRN Reason: Keep Vein Open Last Admin: 02/23/18 18:11 Dose: 10 ml Sodium Chloride (Saline Flush) 2.5 ml FLUSH ASDIRECTED PRN PRN Reason: Keep Vein Open Last Admin: 02/23/18 18:12 Dose: 2.5 ml Discontinued Medications Benzocaine (Hurricaine One 20%) 2 each MUCMEM ONETIME ONE Stop: 02/23/18 20:28 Last Admin: 02/23/18 20:53 Dose: 2 each Bisacodyl (Dulcolax) 10 mg RECTAL ONETIME ONE Stop: 02/23/18 20:39 Last Admin: 02/23/18 20:43 Dose: 10 mg Ephedrine Sulfate (Ephedrine Sulfate) Confirm Administered Dose 50 mg .ROUTE .STK-MED ONE Stop: 02/24/18 00:35 Fentanyl (Sublimaze) Confirm Administered Dose 250 mcg .ROUTE .STK-MED ONE Stop: 02/23/18 23:30 Fentanyl (Sublimaze) Confirm Administered Dose 100 mcg .ROUTE .STK-MED ONE Stop: 02/24/18 01:38 Glycopyrrolate (Robinul) Confirm Administered Dose 0.4 mg .ROUTE .STK-MED ONE Stop: 02/24/18 02:25 Sodium Chloride (Normal Saline) 1,000 mls @ 999 mls/hr IV STAT ONE Stop: 02/23/18 19:05 Last Admin: 02/23/18 18:17 Dose: 999 mls/hr Cefoxitin Sodium 2 gm/ Sodium (Chloride) 50 mls @ 100 mls/hr IV ONETIME ONE Stop: 02/23/18 23:32 Last Admin: 02/23/18 23:12 Dose: Not Given Levofloxacin/Dextrose 750 mg/ (Premix) 150 mls @ 100 mls/hr IV ONETIME ONE Stop: 02/24/18 00:36 Last Admin: 02/23/18 23:15 Dose: 100 mls/hr Iopamidol (Isovue Multipack-370 (76%)) 100 ml IVPUSH ONETIME STA Stop: 02/23/18 19:15 Last Admin: 02/23/18 19:15 Dose: 100 ml Ketorolac Tromethamine (Toradol) 30 mg IVPUSH ONETIME ONE Stop: 02/23/18 18:23 Last Admin: 02/23/18 18:29 Dose: 30 mg Lidocaine (Xylocaine-Mpf 2%) Confirm Administered Dose 5 ml .ROUTE .STK-MED ONE Stop: 02/23/18 23:30 Lorazepam (Ativan) 2 mg IVPUSH ONETIME ONE Stop: 02/23/18 22:53 Last Admin: 02/23/18 23:08 Dose: 2 mg Lorazepam (Ativan) Confirm Administered Dose 2 mg .ROUTE .STK-MED ONE Stop: 02/23/18 22:57 Last Admin: 02/23/18 23:11 Dose: 2 mg Midazolam HCl (Versed 1 Mg/Ml) Confirm Administered Dose 2 mg .ROUTE .STK-MED ONE Stop: 02/23/18 23:30 Morphine Sulfate (Morphine) 2 mg IVPUSH ONETIME ONE Stop: 02/23/18 19:31 Last Admin: 02/23/18 19:37 Dose: 2 mg Morphine Sulfate (Morphine) 2 mg IVPUSH ONETIME ONE Stop: 02/23/18 20:11 Last Admin: 02/23/18 20:14 Dose: 2 mg Morphine Sulfate (Morphine) 2 mg IM ONETIME ONE Stop: 02/23/18 22:53 Last Admin: 02/23/18 23:09 Dose: 2 mg Morphine Sulfate (Morphine) Confirm Administered Dose 2 mg .ROUTE .STK-MED ONE Stop: 02/23/18 22:57 Last Admin: 02/23/18 23:12 Dose: 2 mg Neostigmine Methylsulfate (Neostigmine) Confirm Administered Dose 5 mg .ROUTE .STK-MED ONE Stop: 02/24/18 02:25 Ondansetron HCl (Zofran) 4 mg IVPUSH Q8H PRN PRN Reason: Nausea/Vomiting Last Admin: 02/23/18 23:40 Dose: 4 mg Ondansetron HCl (Zofran) Confirm Administered Dose 4 mg .ROUTE .STK-MED ONE Stop: 02/23/18 23:30 Phenylephrine HCl (Phenylephrine In Ns 100 Mcg/Ml) Confirm Administered Dose 1 mg .ROUTE .STK-MED ONE Stop: 02/24/18 00:34 Propofol (Diprivan 20 Ml) Confirm Administered Dose 200 mg .ROUTE .STK-MED ONE Stop: 02/23/18 23:30 Rocuronium [place] (Zemuron) Confirm Administered Dose 100 mg .ROUTE .STK-MED ONE Stop: 02/23/18 23:30 Succinylcholine Chloride (Quelicin) Confirm Administered Dose 200 mg .ROUTE .STK -MED ONE Stop: 02/23/18 23:30 - Exam General: Alert, Oriented GI/Abdominal Exam: Soft, No Distention - Problem List Review Problem List Initiated/Reviewed/Updated: Yes - My Orders Last 24 Hours: Active Orders 24 hr Category Date Time Status Admission Status [Patient Status] [ADT] Routine ADT 02/23/18 21:02 Active Admission Status [Patient Status] [ADT] Routine ADT 02/24/18 03:06 Active Patient Status [ADT] Stat ADT 02/23/18 20:52 Active Bradycardia-Neuroaxis [employer] [RC] ROUTINE Care 02/24/18 00:44 Active Communication Order [RC] STAT Care 02/24/18 03:08 Active [place] Catheter Insertion [Insert Urinary Catheter] [OM. Care 02/24/18 03:15 Ordered PC] Q24H Hypertension-Neuroaxis [employer] [RC] ROUTINE Care 02/24/18 00:44 Active Hypotension-Neuroaxis [employer] [RC] ROUTINE Care 02/24/18 00:44 Active Intake and Output Strict [RC] Q4HR Care 02/23/18 21:10 Active NG [Gastrointestinal Tube Mgmt] [RC] ASDIRECTED Care 02/23/18 21:16 Active Notify Provider [RC] PRN Care 02/24/18 03:08 Active Pulse Oximetry [RC] CONTINUOUS Care 02/24/18 03:08 Active Remove [place] Catheter [Urinary Catheter Removal] [RC] Care 02/24/18 09:17 Active Per Unit Routine Urinary Catheter Assessment [RC] ASDIRECTED Care 02/24/18 03:12 Active Weight Daily [Height and Weight] [RC] DAILY Care 02/23/18 21:11 Active NPO Now [Nothing per Oral Now Diet] [DIET] Diet 02/24/18 Breakfast Active NPO [Nothing Per Oral Diet] [DIET] Diet 02/24/18 Breakfast Active Abdomen Pelvis w Cont [CT] Stat Exams 02/23/18 18:22 Taken KUB [Abdomen 1V Flat] [CR] Routine Exams 02/23/18 21:05 Taken UA W/MICROSCOPIC [URIN] Stat Lab 02/23/18 18:05 Ordered Acetaminophen [Tylenol] Med 02/23/18 21:17 Active 650 mg RECTAL Q6H PRN Acetaminophen/oxyCODONE [Percocet 325-5 MG] Med 02/23/18 21:18 Active 1 tab PO Q6H PRN Diazepam [Valium] Med 02/24/18 09:18 Active 2 mg IV DAILY PRN Lactated Ringers [Ringers, Lactated] 1,000 ml Med 02/23/18 21:15 Active IV ASDIRECTED Lactated Ringers [Ringers, Lactated] 1,000 ml Med 02/24/18 03:15 Active IV ASDIRECTED Morphine PF [Morphine [employer] 30 MG in 30 ML] Med 02/24/18 03:08 Active See Protocol IV ASDIRECTED PRN Ondansetron [Zofran] Med 02/24/18 03:10 Active 4 mg IVPUSH Q8H PRN Pantoprazole [ProTONIX IV] Med 02/23/18 21:15 Active 40 mg IVPUSH DAILY Phenol [Chloraseptic Throat [place]] Med 02/23/18 22:10 Active 1 ml MUCMEM Q4H PRN Sodium Chloride 0.9% [Saline Flush] Med 02/23/18 18:05 Active 10 ml FLUSH ASDIRECTED PRN Sodium Chloride 0.9% [Saline Flush] Med 02/23/18 18:05 Active 2.5 ml FLUSH ASDIRECTED PRN fentaNYL [Sublimaze] Med 02/24/18 00:44 Active 50 mcg IVPUSH Q5M PRN Medication Discontinuation Instructions [OM.PC] Stat Ot 02/24/18 03:08 Ordered Saline Lock Insert [OM.PC] Stat Ot 02/23/18 18:04 Ordered Medication Orders Acetaminophen (Tylenol) 650 mg RECTAL Q6H PRN PRN Reason: Pain Diazepam (Valium) 2 mg IV DAILY PRN PRN Reason: Spasms Last Admin: 02/24/18 09:46 Dose: 2 mg Fentanyl (Sublimaze) 50 mcg IVPUSH Q5M PRN PRN Reason: Pain (severe 7-10) Stop: 02/25/18 00:44 Last Admin: 02/24/18 03:25 Dose: 50 mcg Lactated Ringer's (Ringers, Lactated) 1,000 mls @ 150 mls/hr IV ASDIRECTED [facility] Last Admin: 07/16/18 21:20 Dose: 150 mls/hr Lactated Ringer's (Ringers, Lactated) 1,000 mls @ 150 mls/hr IV ASDIRECTED [facility] Last Admin: 02/24/18 04:39 Dose: 150 mls/hr Morphine Sulfate (Morphine Roll Tube Setter 30 Mg In 30 Ml) 0 mg IV ASDIRECTED PRN; Protocol PRN Reason: Pain (severe 7-10) Last Admin: 02/24/18 04:02 Dose: 30 mg Ondansetron HCl (Zofran) 4 mg IVPUSH Q8H PRN PRN Reason: Nausea/Vomiting Oxycodone/Acetaminophen (Percocet 325-5 Mg) 1 tab PO Q6H PRN PRN Reason: Breakthrough Pain Last Admin: 02/23/18 21:30 Dose: 1 tab Pantoprazole Sodium (Protonix Iv) 40 mg IVPUSH DAILY [facility] Last Admin: 02/24/18 08:18 Dose: 40 mg Admin: 02/23/18 21:21 Dose: 40 mg Phenol/Menthol (Chloraseptic Throat [place]) 1 ml MUCMEM Q4H PRN PRN Reason: Sore Throat Sodium Chloride (Saline Flush) 10 ml FLUSH ASDIRECTED PRN PRN Reason: Keep Vein Open Last Admin: 02/23/18 18:11 Dose: 10 ml Sodium Chloride (Saline Flush) 2.5 ml FLUSH ASDIRECTED PRN PRN Reason: Keep Vein Open Last Admin: 02/23/18 18:12 Dose: 2.5 ml - Assessment Assessment (Free Text/Narrative):: pod0 xlap/internal hernia reduction, on secondary art teacher w pain control; campos major amb ice chip await bowel function - Plan Plan (Free Text/Narrative):: pod0 xlap/internal hernia reduction, on secondary art teacher w pain control; campos major amb, ice chip await bowel function
--- NOTE | 2018-02-24 15:12 | CT ---
EXAM DATE: 02/24/18 PATIENT'S AGE: 17 Patient: TACHO FOURNIER Facility: [place], [place] Site . Site : 2000 Study: CT Abdomen/Pelvis [id number]/[id number] 7:12:16 PM Ordering Physician: Doctor Mcdermott Final Report: INDICATION: abd pain TECHNIQUE: CT abdomen and pelvis acquired with IV contrast. COMPARISON: None FINDINGS: Lower chest: Unremarkable. Liver: Unremarkable. Spleen: Unremarkable. Pancreas: Unremarkable. Gallbladder and bile ducts: Unremarkable. Kidneys: Unremarkable. Adrenal glands: Unremarkable. GI tract: Internal hernia within the left upper quadrant causing a mechanical small bowel obstruction. No evidence of perforation or abscess formation. Moderate amount of stool. Appendix is normal. Vascular structures: Negative. No sign of aneurysm. Lymph nodes: Prominent nonspecific mesenteric lymph nodes Miscellaneous: Unremarkable. No free air delete that. Small amount of free fluid. Pelvic Organs: Unremarkable. Bones: Unremarkable for age. IMPRESSION: Internal hernia within the left upper quadrant causing a mechanical small bowel obstruction. No evidence of perforation or abscess formation. . Results called to KRYSTAL Hanna 1940 hours on February 23, 2018 Dictated by Chacho Das MD @ 02/23/2018 7:41:50 PM Please note that all CT scans at this facility use dose modulation, iterative reconstruction, and/or weight-based dosing when appropriate to reduce radiation dose to as low as reasonably achievable. Dictated by: Chacho Das MD @ 02/23/2018 19:42:08 (Electronic Signature) Report Signed by Proxy. [facility]
--- NOTE | 2018-02-24 17:04 | CR ---
EXAM DATE: 02/24/18 PATIENT'S AGE: 17 Patient: TACHO FOURNIER Facility: [place], [place] Site . Site : 2000 Study: XRay Abdomen [id number]/16/2018 9:20:58 PM Ordering Physician: Sruthi Barahona Final Report: INDICATION: Nasogastric tube placement. TECHNIQUE: KUB . Findings: Nasogastric tube in the stomach. IMPRESSION: NG tube in the stomach. Dictated by Mary Chirinos MD @ Feb 23 2018 9:30PM (Electronic Signature) Report Signed by Proxy. LEONARD
[2018-02-25] MEDS: Acetaminophen 650 MG Supp RECTAL PRN (00:49)
[2018-02-25] MEDS: Lactated Ringers 1,000 ML IV SCH ×3 (01:00→21:18)
[2018-02-25] MEDS: Pantoprazole 40 MG Vial IVPUSH SCH (10:10)
--- NOTE | 2018-02-25 12:23 | PCM.SURGPN ---
- General Info Date of Service: 02/25/18 POD#: 1 Functional Status: Reports: Pain Controlled - Review of Systems General: Reports: No Symptoms Gastrointestinal: Reports: No Symptoms (no flatus) - Patient Data Vitals - Most Recent: Last Vital Signs Temp 99.5 F 02/25/18 12:00 Pulse 110 H 02/25/18 12:00 Resp 18 02/25/18 12:00 BP 124/70 02/25/18 12:00 Pulse Ox 97 02/25/18 12:00 Weight - Most Recent: 194 lb I&O - Last 24 Hours: Intake & Output 02/24/18 02/25/18 02/25/18 22:59 06:59 14:59 Intake Total 0 1200 0 Output Total 950 1490 300 Balance -950 -290 -300 Med Orders - Current: Current Medications Acetaminophen (Tylenol) 650 mg RECTAL Q6H PRN PRN Reason: Pain Last Admin: 02/25/18 00:49 Dose: 650 mg Diazepam (Valium) 2 mg IV DAILY PRN PRN Reason: Spasms Last Admin: 02/24/18 09:46 Dose: 2 mg Lactated Ringer's (Ringers, Lactated) 1,000 mls @ 150 mls/hr IV ASDIRECTED [facility] Last Admin: 02/25/18 07:22 Dose: 150 mls/hr Lactated Ringer's (Ringers, Lactated) 1,000 mls @ 150 mls/hr IV ASDIRECTED [facility] Last Admin: 02/25/18 01:00 Dose: 150 mls/hr Morphine Sulfate (Morphine Rounding Machine Tender 30 Mg In 30 Ml) 0 mg IV ASDIRECTED PRN; Protocol PRN Reason: Pain (severe 7-10) Last Admin: 02/24/18 23:29 Dose: 30 mg Ondansetron HCl (Zofran) 4 mg IVPUSH Q8H PRN PRN Reason: Nausea/Vomiting Oxycodone/Acetaminophen (Percocet 325-5 Mg) 1 tab PO Q6H PRN PRN Reason: Breakthrough Pain Last Admin: 02/23/18 21:30 Dose: 1 tab Pantoprazole Sodium (Protonix Iv) 40 mg IVPUSH DAILY [facility] Last Admin: 02/25/18 10:10 Dose: 40 mg Phenol/Menthol (Chloraseptic Throat [place]) 1 ml MUCMEM Q4H PRN PRN Reason: Sore Throat Sodium Chloride (Saline Flush) 10 ml FLUSH ASDIRECTED PRN PRN Reason: Keep Vein Open Last Admin: 02/23/18 18:11 Dose: 10 ml Sodium Chloride (Saline Flush) 2.5 ml FLUSH ASDIRECTED PRN PRN Reason: Keep Vein Open Last Admin: 02/23/18 18:12 Dose: 2.5 ml Discontinued Medications Benzocaine (Hurricaine One 20%) 2 each MUCMEM ONETIME ONE Stop: 02/23/18 20:28 Last Admin: 02/23/18 20:53 Dose: 2 each Bisacodyl (Dulcolax) 10 mg RECTAL ONETIME ONE Stop: 02/23/18 20:39 Last Admin: 02/23/18 20:43 Dose: 10 mg Ephedrine Sulfate (Ephedrine Sulfate) Confirm Administered Dose 50 mg .ROUTE .STK-MED ONE Stop: 02/24/18 00:35 Fentanyl (Sublimaze) Confirm Administered Dose 250 mcg .ROUTE .STK-MED ONE Stop: 02/23/18 23:30 Fentanyl (Sublimaze) 50 mcg IVPUSH Q5M PRN PRN Reason: Pain (severe 7-10) Stop: 02/25/18 00:44 Last Admin: 02/24/18 03:25 Dose: 50 mcg Fentanyl (Sublimaze) Confirm Administered Dose 100 mcg .ROUTE .STK-MED ONE Stop: 02/24/18 01:38 Glycopyrrolate (Robinul) Confirm Administered Dose 0.4 mg .ROUTE .STK-MED ONE Stop: 02/24/18 02:25 Sodium Chloride (Normal Saline) 1,000 mls @ 999 mls/hr IV STAT ONE Stop: 02/23/18 19:05 Last Admin: 02/23/18 18:17 Dose: 999 mls/hr Cefoxitin Sodium 2 gm/ Sodium (Chloride) 50 mls @ 100 mls/hr IV ONETIME ONE Stop: 02/23/18 23:32 Last Admin: 02/23/18 23:12 Dose: Not Given Levofloxacin/Dextrose 750 mg/ (Premix) 150 mls @ 100 mls/hr IV ONETIME ONE Stop: 02/24/18 00:36 Last Admin: 07/16/18 23:15 Dose: 100 mls/hr Iopamidol (Isovue Multipack-370 (76%)) 100 ml IVPUSH ONETIME STA Stop: 02/23/18 19:15 Last Admin: 02/23/18 19:15 Dose: 100 ml Ketorolac Tromethamine (Toradol) 30 mg IVPUSH ONETIME ONE Stop: 02/23/18 18:23 Last Admin: 02/23/18 18:29 Dose: 30 mg Lidocaine (Xylocaine-Mpf 2%) Confirm Administered Dose 5 ml .ROUTE .STK-MED ONE Stop: 02/23/18 23:30 Lorazepam (Ativan) 2 mg IVPUSH ONETIME ONE Stop: 02/23/18 22:53 Last Admin: 02/23/18 23:08 Dose: 2 mg Lorazepam (Ativan) Confirm Administered Dose 2 mg .ROUTE .STK-MED ONE Stop: 02/23/18 22:57 Last Admin: 02/23/18 23:11 Dose: 2 mg Midazolam HCl (Versed 1 Mg/Ml) Confirm Administered Dose 2 mg .ROUTE .STK-MED ONE Stop: 02/23/18 23:30 Morphine Sulfate (Morphine) 2 mg IVPUSH ONETIME ONE Stop: 02/23/18 19:31 Last Admin: 02/23/18 19:37 Dose: 2 mg Morphine Sulfate (Morphine) 2 mg IVPUSH ONETIME ONE Stop: 02/23/18 20:11 Last Admin: 02/23/18 20:14 Dose: 2 mg Morphine Sulfate (Morphine) 2 mg IM ONETIME ONE Stop: 02/23/18 22:53 Last Admin: 02/23/18 23:09 Dose: 2 mg Morphine Sulfate (Morphine) Confirm Administered Dose 2 mg .ROUTE .STK-MED ONE Stop: 02/23/18 22:57 Last Admin: 02/23/18 23:12 Dose: 2 mg Neostigmine Methylsulfate (Neostigmine) Confirm Administered Dose 5 mg .ROUTE .STK-MED ONE Stop: 02/24/18 02:25 Ondansetron HCl (Zofran) 4 mg IVPUSH Q8H PRN PRN Reason: Nausea/Vomiting Last Admin: 02/23/18 23:40 Dose: 4 mg Ondansetron HCl (Zofran) Confirm Administered Dose 4 mg .ROUTE .STK-MED ONE Stop: 02/23/18 23:30 Phenylephrine HCl (Phenylephrine In Ns 100 Mcg/Ml) Confirm Administered Dose 1 mg .ROUTE .STK-MED ONE Stop: 02/24/18 00:34 Propofol (Diprivan 20 Ml) Confirm Administered Dose 200 mg .ROUTE .STK-MED ONE Stop: 02/23/18 23:30 Rocuronium [place] (Zemuron) Confirm Administered Dose 100 mg .ROUTE .STK-MED ONE Stop: 02/23/18 23:30 Succinylcholine Chloride (Quelicin) Confirm Administered Dose 200 mg .ROUTE .STK -MED ONE Stop: 02/23/18 23:30 - Exam General: Alert, Oriented GI/Abdominal Exam: Soft, No Distention - Problem List Review Problem List Initiated/Reviewed/Updated: Yes - My Orders Last 24 Hours: Medication Orders Acetaminophen (Tylenol) 650 mg RECTAL Q6H PRN PRN Reason: Pain Last Admin: 02/25/18 00:49 Dose: 650 mg Diazepam (Valium) 2 mg IV DAILY PRN PRN Reason: Spasms Last Admin: 02/24/18 09:46 Dose: 2 mg Lactated Ringer's (Ringers, Lactated) 1,000 mls @ 150 mls/hr IV ASDIRECTED [facility] Last Admin: 02/25/18 07:22 Dose: 150 mls/hr Infusion: 02/25/18 00:57 Dose: 150 mls/hr Admin: 02/24/18 18:16 Dose: 150 mls/hr Infusion: 02/24/18 04:01 Dose: 150 mls/hr Admin: 02/23/18 21:20 Dose: 150 mls/hr Lactated Ringer's (Ringers, Lactated) 1,000 mls @ 150 mls/hr IV ASDIRECTED [facility] Last Admin: 02/25/18 01:00 Dose: 150 mls/hr Infusion: 02/24/18 18:10 Dose: 150 mls/hr Admin: 02/24/18 11:29 Dose: 150 mls/hr Infusion: 02/24/18 11:20 Dose: 150 mls/hr Admin: 02/24/18 04:39 Dose: 150 mls/hr Morphine Sulfate (Morphine Rounding Machine Tender 30 Mg In 30 Ml) 0 mg IV ASDIRECTED PRN; Protocol PRN Reason: Pain (severe 7-10) Last Admin: 02/24/18 23:29 Dose: 30 mg Admin: 02/24/18 04:02 Dose: 30 mg Ondansetron HCl (Zofran) 4 mg IVPUSH Q8H PRN PRN Reason: Nausea/Vomiting Oxycodone/Acetaminophen (Percocet 325-5 Mg) 1 tab PO Q6H PRN PRN Reason: Breakthrough Pain Last Admin: 02/23/18 21:30 Dose: 1 tab Pantoprazole Sodium (Protonix Iv) 40 mg IVPUSH DAILY [facility] Last Admin: 02/25/18 10:10 Dose: 40 mg Admin: 02/24/18 08:18 Dose: 40 mg Admin: 02/23/18 21:21 Dose: 40 mg Phenol/Menthol (Chloraseptic Throat [place]) 1 ml MUCMEM Q4H PRN PRN Reason: Sore Throat Sodium Chloride (Saline Flush) 10 ml FLUSH ASDIRECTED PRN PRN Reason: Keep Vein Open Last Admin: 02/23/18 18:11 Dose: 10 ml Sodium Chloride (Saline Flush) 2.5 ml FLUSH ASDIRECTED PRN PRN Reason: Keep Vein Open Last Admin: 02/23/18 18:12 Dose: 2.5 ml - Assessment Assessment (Free Text/Narrative):: doing well, no flatus yet; continue encourage mobilization; ngt/ivf; 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
[2018-02-25] MEDS: Morphine PF 30 MG/30 ML PCA Vial IV PRN (17:05)
[2018-02-26] MEDS: Acetaminophen 650 MG Supp RECTAL PRN (01:24)
[2018-02-26] MEDS: Lactated Ringers 1,000 ML IV SCH ×3 (04:00→17:31)
[2018-02-26] MEDS: Pantoprazole 40 MG Vial IVPUSH SCH (08:19)
[2018-02-26 09:37] LABS: CHLORIDE,CL 101 mmol/L (98-107); SODIUM,NA 135 mmol/L (136-148)
--- NOTE | 2018-02-26 09:54 | PCM.SURGPN ---
- General Info Date of Service: 02/26/18 POD#: 2 Functional Status: Reports: Pain Controlled - Review of Systems General: Reports: No Symptoms (no flatus, temp 102 last night; pain much improved, ambulate by self; wbc droped to 9. ngt output 200 in 24 hrs) Gastrointestinal: Reports: No Symptoms - Patient Data Vitals - Most Recent: Last Vital Signs Temp 98.4 F 02/26/18 05:00 Pulse 102 H 02/26/18 05:00 Resp 20 02/26/18 05:00 BP 116/66 02/26/18 05:00 Pulse Ox 96 02/26/18 05:00 Weight - Most Recent: 194 lb 0.108 oz I&O - Last 24 Hours: Intake & Output 02/25/18 02/26/18 02/26/18 22:59 06:59 14:59 Intake Total 2100 1500 0 Output Total 300 1750 0 Balance 1800 -250 0 Lab Results Last 24 Hrs: Laboratory Results - last 24 hr 02/26/18 02/26/18 Range/Units 08:59 08:59 WBC 9.70 (4.0-11.0) K/uL RBC 4.57 (4.50-5.90) M/uL Hgb 13.5 (13.0-17.0) g/dL Hct 38.8 (38.0-50.0) % MCV 84.9 (80.0-98.0) fL MCH 29.5 (27.0-32.0) pg MCHC 34.8 (31.0-37.0) g/dL RDW Std Deviation 38.3 (28.0-62.0) fl RDW Coeff of [place] 13 (11.0-15.0) % Plt Count 180 (150-400) K/uL MPV 9.00 (7.40-12.00) fL Neut % (Auto) 67.0 (48.0-80.0) % Lymph % (Auto) 15.5 L (16.0-40.0) % Bartholomew % (Auto) 14.2 (0.0-15.0) % Eos % (Auto) 3.2 (0.0-7.0) % Baso % (Auto) 0.1 (0.0-1.5) % Neut # (Auto) 6.5 H (1.4-5.7) K/uL Lymph # (Auto) 1.5 (0.6-2.4) K/uL Bartholomew # (Auto) 1.4 H (0.0-0.8) K/uL Eos # (Auto) 0.3 (0.0-0.7) K/uL Baso # (Auto) 0.0 (0.0-0.1) K/uL Nucleated RBC % 0.0 /100WBC Nucleated RBCs # 0 K/uL Sodium 135 L (136-148) mmol/L Potassium 3.5 (3.5-5.1) mmol/L Chloride 101 (98-107) mmol/L Carbon Dioxide 26.4 (21.0-32.0) mmol/L BUN 7 (7.0-18.0) mg/dL Creatinine 0.7 L (0.8-1.3) mg/dL Est Cr Clr Drug Dosing 202.87 mL/min Estimated GFR (MDRD) > 60.0 ml/min Glucose 96 (74-106) mg/dL Calcium 8.7 (8.5-10.1) mg/dL Total Bilirubin 1.5 H (0.2-1.0) mg/dL AST 24 (15-37) IU/L ALT 19 (14-63) IU/L Alkaline Phosphatase 64 (46-116) U/L Total Protein 6.9 (6.4-8.2) g/dL Albumin 2.9 L (3.4-5.0) g/dL Globulin 4.0 H (2.0-3.5) g/dL Albumin/Globulin Ratio 0.7 L (1.3-2.8) Med Orders - Current: Current Medications Acetaminophen (Tylenol) 650 mg RECTAL Q6H PRN PRN Reason: Pain Last Admin: 02/26/18 01:24 Dose: 650 mg Diazepam (Valium) 2 mg IV DAILY PRN PRN Reason: Spasms Last Admin: 02/24/18 09:46 Dose: 2 mg Lactated Ringer's (Ringers, Lactated) 1,000 mls @ 150 mls/hr IV ASDIRECTED [facility] Last Admin: 02/26/18 04:00 Dose: 150 mls/hr Lactated Ringer's (Ringers, Lactated) 1,000 mls @ 150 mls/hr IV ASDIRECTED [facility] Last Admin: 02/25/18 01:00 Dose: 150 mls/hr Morphine Sulfate (Morphine Date Night Sitter 30 Mg In 30 Ml) 0 mg IV ASDIRECTED PRN; Protocol PRN Reason: Pain (severe 7-10) Last Admin: 02/25/18 17:05 Dose: 30 mg Ondansetron HCl (Zofran) 4 mg IVPUSH Q8H PRN PRN Reason: Nausea/Vomiting Oxycodone/Acetaminophen (Percocet 325-5 Mg) 1 tab PO Q6H PRN PRN Reason: Breakthrough Pain Last Admin: 02/23/18 21:30 Dose: 1 tab Pantoprazole Sodium (Protonix Iv) 40 mg IVPUSH DAILY [facility] Last Admin: 02/26/18 08:19 Dose: 40 mg Phenol/Menthol (Chloraseptic Throat [place]) 1 ml MUCMEM Q4H PRN PRN Reason: Sore Throat Sodium Chloride (Saline Flush) 10 ml FLUSH ASDIRECTED PRN PRN Reason: Keep Vein Open Last Admin: 02/23/18 18:11 Dose: 10 ml Sodium Chloride (Saline Flush) 2.5 ml FLUSH ASDIRECTED PRN PRN Reason: Keep Vein Open Last Admin: 02/23/18 18:12 Dose: 2.5 ml Discontinued Medications Benzocaine (Hurricaine One 20%) 2 each MUCMEM ONETIME ONE Stop: 02/23/18 20:28 Last Admin: 02/23/18 20:53 Dose: 2 each Bisacodyl (Dulcolax) 10 mg RECTAL ONETIME ONE Stop: 02/23/18 20:39 Last Admin: 02/23/18 20:43 Dose: 10 mg Ephedrine Sulfate (Ephedrine Sulfate) Confirm Administered Dose 50 mg .ROUTE .STK-MED ONE Stop: 02/24/18 00:35 Fentanyl (Sublimaze) Confirm Administered Dose 250 mcg .ROUTE .STK-MED ONE Stop: 02/23/18 23:30 Fentanyl (Sublimaze) 50 mcg IVPUSH Q5M PRN PRN Reason: Pain (severe 7-10) Stop: 02/25/18 00:44 Last Admin: 02/24/18 03:25 Dose: 50 mcg Fentanyl (Sublimaze) Confirm Administered Dose 100 mcg .ROUTE .STK-MED ONE Stop: 02/24/18 01:38 Glycopyrrolate (Robinul) Confirm Administered Dose 0.4 mg .ROUTE .STK-MED ONE Stop: 02/24/18 02:25 Sodium Chloride (Normal Saline) 1,000 mls @ 999 mls/hr IV STAT ONE Stop: 02/23/18 19:05 Last Admin: 02/23/18 18:17 Dose: 999 mls/hr Cefoxitin Sodium 2 gm/ Sodium (Chloride) 50 mls @ 100 mls/hr IV ONETIME ONE Stop: 02/23/18 23:32 Last Admin: 02/23/18 23:12 Dose: Not Given Levofloxacin/Dextrose 750 mg/ (Premix) 150 mls @ 100 mls/hr IV ONETIME ONE Stop: 02/24/18 00:36 Last Admin: 02/23/18 23:15 Dose: 100 mls/hr Iopamidol (Isovue Multipack-370 (76%)) 100 ml IVPUSH ONETIME STA Stop: 02/23/18 19:15 Last Admin: 02/23/18 19:15 Dose: 100 ml Ketorolac Tromethamine (Toradol) 30 mg IVPUSH ONETIME ONE Stop: 02/23/18 18:23 Last Admin: 02/23/18 18:29 Dose: 30 mg Lidocaine (Xylocaine-Mpf 2%) Confirm Administered Dose 5 ml .ROUTE .STK-MED ONE Stop: 02/23/18 23:30 Lorazepam (Ativan) 2 mg IVPUSH ONETIME ONE Stop: 02/23/18 22:53 Last Admin: 02/23/18 23:08 Dose: 2 mg Lorazepam (Ativan) Confirm Administered Dose 2 mg .ROUTE .STK-MED ONE Stop: 02/23/18 22:57 Last Admin: 02/23/18 23:11 Dose: 2 mg Midazolam HCl (Versed 1 Mg/Ml) Confirm Administered Dose 2 mg .ROUTE .STK-MED ONE Stop: 02/23/18 23:30 Morphine Sulfate (Morphine) 2 mg IVPUSH ONETIME ONE Stop: 02/23/18 19:31 Last Admin: 02/23/18 19:37 Dose: 2 mg Morphine Sulfate (Morphine) 2 mg IVPUSH ONETIME ONE Stop: 02/23/18 20:11 Last Admin: 02/23/18 20:14 Dose: 2 mg Morphine Sulfate (Morphine) 2 mg IM ONETIME ONE Stop: 02/23/18 22:53 Last Admin: 02/23/18 23:09 Dose: 2 mg Morphine Sulfate (Morphine) Confirm Administered Dose 2 mg .ROUTE .STK-MED ONE Stop: 02/23/18 22:57 Last Admin: 02/23/18 23:12 Dose: 2 mg Neostigmine Methylsulfate (Neostigmine) Confirm Administered Dose 5 mg .ROUTE .STK-MED ONE Stop: 02/24/18 02:25 Ondansetron HCl (Zofran) 4 mg IVPUSH Q8H PRN PRN Reason: Nausea/Vomiting Last Admin: 02/23/18 23:40 Dose: 4 mg Ondansetron HCl (Zofran) Confirm Administered Dose 4 mg .ROUTE .STK-MED ONE Stop: 02/23/18 23:30 Phenylephrine HCl (Phenylephrine In Ns 100 Mcg/Ml) Confirm Administered Dose 1 mg .ROUTE .STK-MED ONE Stop: 02/24/18 00:34 Propofol (Diprivan 20 Ml) Confirm Administered Dose 200 mg .ROUTE .STK-MED ONE Stop: 02/23/18 23:30 Rocuronium [place] (Zemuron) Confirm Administered Dose 100 mg .ROUTE .STK-MED ONE Stop: 02/23/18 23:30 Succinylcholine Chloride (Quelicin) Confirm Administered Dose 200 mg .ROUTE .STK -MED ONE Stop: 02/23/18 23:30 - Exam General: Alert, Oriented Neck: Supple Lungs: Clear to Auscultation, Normal Respiratory Effort Cardiovascular: Regular Rate GI/Abdominal Exam: Soft, No Distention (minimal serous expressing materials, no cellulitis, scant bowel sound) - Problem List Review Problem List Initiated/Reviewed/Updated: Yes - My Orders Last 24 Hours: Active Orders 24 hr Category Date Time Status CULTURE BLOOD [BC] Stat Lab 02/26/18 09:18 Received CULTURE BLOOD [BC] Stat Lab 02/26/18 09:28 Received Blood Culture x2 Reflex Set [OM.PC] Stat Oth 02/26/18 09:04 Ordered Medication Orders Acetaminophen (Tylenol) 650 mg RECTAL Q6H PRN PRN Reason: Pain Last Admin: 07/19/18 01:24 Dose: 650 mg Admin: 02/25/18 00:49 Dose: 650 mg Diazepam (Valium) 2 mg IV DAILY PRN PRN Reason: Spasms Last Admin: 02/24/18 09:46 Dose: 2 mg Lactated Ringer's (Ringers, Lactated) 1,000 mls @ 150 mls/hr IV ASDIRECTED [facility] Last Admin: 02/26/18 04:00 Dose: 150 mls/hr Infusion: 02/26/18 03:59 Dose: 150 mls/hr Admin: 02/25/18 21:18 Dose: 150 mls/hr Infusion: 02/25/18 14:03 Dose: 150 mls/hr Admin: 02/25/18 07:22 Dose: 150 mls/hr Infusion: 02/25/18 00:57 Dose: 150 mls/hr Admin: 02/24/18 18:16 Dose: 150 mls/hr Infusion: 02/24/18 04:01 Dose: 150 mls/hr Admin: 02/23/18 21:20 Dose: 150 mls/hr Lactated Ringer's (Ringers, Lactated) 1,000 mls @ 150 mls/hr IV ASDIRECTED [facility] Last Admin: 02/25/18 01:00 Dose: 150 mls/hr Infusion: 02/24/18 18:10 Dose: 150 mls/hr Admin: 02/24/18 11:29 Dose: 150 mls/hr Infusion: 02/24/18 11:20 Dose: 150 mls/hr Admin: 02/24/18 04:39 Dose: 150 mls/hr Morphine Sulfate (Morphine Date Night Sitter 30 Mg In 30 Ml) 0 mg IV ASDIRECTED PRN; Protocol PRN Reason: Pain (severe 7-10) Last Admin: 02/25/18 17:05 Dose: 30 mg Admin: 02/24/18 23:29 Dose: 30 mg Admin: 02/24/18 04:02 Dose: 30 mg Ondansetron HCl (Zofran) 4 mg IVPUSH Q8H PRN PRN Reason: Nausea/Vomiting Oxycodone/Acetaminophen (Percocet 325-5 Mg) 1 tab PO Q6H PRN PRN Reason: Breakthrough Pain Last Admin: 02/23/18 21:30 Dose: 1 tab Pantoprazole Sodium (Protonix Iv) 40 mg IVPUSH DAILY [facility] Last Admin: 02/26/18 08:19 Dose: 40 mg Admin: 02/25/18 10:10 Dose: 40 mg Admin: 02/24/18 08:18 Dose: 40 mg Admin: 02/23/18 21:21 Dose: 40 mg Phenol/Menthol (Chloraseptic Throat [place]) 1 ml MUCMEM Q4H PRN PRN Reason: Sore Throat Sodium Chloride (Saline Flush) 10 ml FLUSH ASDIRECTED PRN PRN Reason: Keep Vein Open Last Admin: 02/23/18 18:11 Dose: 10 ml Sodium Chloride (Saline Flush) 2.5 ml FLUSH ASDIRECTED PRN PRN Reason: Keep Vein Open Last Admin: 02/23/18 18:12 Dose: 2.5 ml - Assessment Assessment (Free Text/Narrative):: pod2 from ex lap and internal hernia reduction; temp to 102 last night; blood culture sent, wbc down to normal this morning; pt is using inc spirometer and not a smoker; will clamp ngt for couple hrs, if tolerate, pull ngt and start clear liquid diet; will keep clear liquid till passing gas or BM. - Plan Plan (Free Text/Narrative):: pod2 from ex lap and internal hernia reduction; temp to 102 last night; blood culture sent, wbc down to normal this morning; pt is using inc spirometer and not a smoker; will clamp ngt for couple hrs, if tolerate, pull ngt and start clear liquid diet; will keep clear liquid till passing gas or BM.
[2018-02-26] MEDS ORDERED: Cyclobenzaprine 5 MG Tab PO PRN (12:18)
[2018-02-26] MEDS ORDERED: Morphine 2 MG/ML Syringe IVPUSH PRN (12:18)
[2018-02-26] MEDS ORDERED: Ketorolac 10 MG Tab PO PRN (12:24)
[2018-02-26] MEDS: Acetaminophen/oxyCODONE 325-5 MG Tab PO PRN ×3 (13:21→23:02)
--- NOTE | 2018-02-26 16:48 | OR ---
SURGEON: Jun Negro MD DATE OF PROCEDURE: 02/24/2018 PREOPERATIVE DIAGNOSES: Abdominal pain and small bowel obstruction. POSTOPERATIVE DIAGNOSES: Incarcerated internal hernia with small bowel and causing small bowel obstruction. PROCEDURES PERFORMED: 1. Exploratory laparotomy. 2. Reduction and repair of internal hernia. POSITION CLASSIFIER: Juvenal Phillips M.D. COMPLICATIONS: None. FINDINGS: Small segment of jejunum was herniated into an internal hernia and around the ligament of Treitz and causing mechanical bowel obstruction. It was reduced and no bowel resection performed and hernia repair, primary, no mesh used. BRIEF SURGICAL JUSTIFICATION: The patient is a 17-year-old gentleman, has on and off abdominal pain and constipation over one year with increased amount of pain. At the day of admission, the patient checked in the emergency room and CT shows internal hernia with bowel obstruction and Surgery was then consulted. The patient was admitted, and laterpain increased much larger than physical exam and also white count showed up from 10 to 15, and the patient was urgently taken operating room. CAT scan shows mechanical bowel obstruction. PROCEDURE IN DETAIL: The patient was taken to the operating room and placed in supine position. Upon induction of general endotracheal anesthesia, the patient's abdomen was prepped and draped in a sterile fashion. Time-out was being called, the patient identified and procedure identified, antibiotic Levaquin was given and it was then stopped. Using a #10 scalpel, midline incision was made from epigastrium beveled to the level of the umbilicus down to the pubis and the peritoneal cavity was entered in a standard fashion. Upon gaining entrance in the peritoneal cavity. First, does not seem to have any free air and second, the bowels are not dilated in the usual bowel obstruction pattern and careful exploration immediately noticed. There is a piece of bowel stuck into hernia to the left upper quadrant of the abdomen and with careful gentle awakening of the bowel, the bowel was able to slowly with difficulty reduced, and the bowel was a little bit dusky at first and within seconds, it hanged up and then we see first doses on that segment of bowel, so it was well perfused and alive. Exploration of that internal hernia noticed that the hernia was formed by a band very close to the ligament of Treitz, but is not in the right place. The distal end of the ligament is not attached to the duodenum, instead it passed over the full portion of duodenum and attached to the mesenteric surveys of the small bowel and the upper end was attached to the underside of the colon. The lower end was attached to the service of the mesentery of the small bowel and is very thick ligament. 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 Running the bowel from the duodenum all the way to the terminal ileum does not show any other etiology and the previous entrapped bowel or incarcerated bowel is totally alive and with peristalsis and pink. The opening is pretty large. The opening looks like similar to the ligament of Treitz, but again it does not attach to the duodenum; in fact, it passed over, so that makes the whole about a size of 3 cm. The hole was then repaired to make it smaller to prevent future happening and using 3-0 Vicryl and 3-0 popoff silk down to about a size of 1.5 cm where the thumb can easily go through, but on the relax situation, it is totally occupied by the fall portion of duodenum and without stricture or tension followed with extensive irrigation and the omentum pulled down and the peritoneal cavity was then closed by use of double strand #1 PDS. Prior to closing, instrument counts and sponge counts correct and also copious irrigation. The segment of the bowel that are entrapped is about 20 cm downstream from the duodenum. The appendix was examined, it is in the right place on the right lower quadrant and is totally legally white appendix. No signs or symptoms inflammation. No appendicitis. Skin was approximated with use of skin dong, and the patient tolerated the procedure well. There were no intraoperative complication, and Dr. Negro presents through the whole procedure. During the whole exploration and the procedure, there was no enterotomy occurred and there was no bowel resection. As always, thank you for the kind referral. PRO / CARIN /[id number] LEONARD
[2018-02-26] MEDS: Polyethylene Glycol 3350 Powder 17 GM Packet PO SCH (22:30)
[2018-02-27] MEDS: Lactated Ringers 1,000 ML IV SCH ×2 (00:20→05:17)
[2018-02-27] MEDS: Acetaminophen/oxyCODONE 325-5 MG Tab PO PRN ×4 (05:14→22:31)
[2018-02-27] MEDS: Pantoprazole 40 MG Vial IVPUSH SCH (09:13)
--- NOTE | 2018-02-27 09:50 | PCM.SURGPN ---
- General Info Date of Service: 02/27/18 Date of Surgery/Procedure: 02/24/18 Functional Status: Reports: Pain Controlled, Tolerating Diet, Ambulating, Urinating - Review of Systems General: Reports: No Symptoms Pulmonary: Reports: No Symptoms Cardiovascular: Reports: No Symptoms Gastrointestinal: Reports: No Symptoms. Denies: Flatus Genitourinary: Reports: No Symptoms Musculoskeletal: Reports: No Symptoms - Patient Data Vitals - Most Recent: Last Vital Signs Temp 36.1 C 02/27/18 08:00 Pulse 91 02/27/18 08:00 Resp 16 02/27/18 08:00 BP 110/59 L 02/27/18 08:00 Pulse Ox 95 02/27/18 08:00 Weight - Most Recent: 88.36 kg I&O - Last 24 Hours: Intake & Output 02/26/18 02/27/18 02/27/18 22:59 06:59 14:59 Intake Total 2792 2090 100 Output Total 0 Balance 2792 2090 100 Emeka Results Last 24 Hrs: Microbiology 02/26/18 09:28 Aerobic Blood Culture - Preliminary Blood - Venous - Lab Draw NO GROWTH AFTER 1 DAY Anaerobic Blood Culture - Preliminary NO GROWTH AFTER 1 DAY 02/26/18 09:18 Aerobic Blood Culture - Preliminary Blood - Venous NO GROWTH AFTER 1 DAY Anaerobic Blood Culture - Preliminary NO GROWTH AFTER 1 DAY Med Orders - Current: Current Medications Cyclobenzaprine HCl (Flexeril) 5 mg PO TID PRN PRN Reason: muscle spasm Ketorolac Tromethamine (Toradol) 10 mg PO Q6H PRN PRN Reason: Pain Stop: 03/03/18 12:25 Morphine Sulfate (Morphine) 2 mg IVPUSH Q1H PRN PRN Reason: Abdominal Pain Last Admin: 02/26/18 18:50 Dose: 2 mg Ondansetron HCl (Zofran) 4 mg IVPUSH Q8H PRN PRN Reason: Nausea/Vomiting Oxycodone/Acetaminophen (Percocet 325-5 Mg) 2 tab PO Q4H PRN PRN Reason: Abdominal Pain Last Admin: 02/27/18 05:14 Dose: 2 tab Pantoprazole Sodium (Protonix Iv) 40 mg IVPUSH DAILY A[facility]A Last Admin: 02/27/18 09:13 Dose: 40 mg Phenol/Menthol (Chloraseptic Throat [place]) 1 ml MUCMEM Q4H PRN PRN Reason: Sore Throat Polyethylene Glycol (Miralax) 17 gm PO BEDTIME A[facility]A Last Admin: 02/26/18 22:30 Dose: 17 gm Senna/Docusate Sodium (Senokot-S) 2 each PO BEDTIME [facility] Sodium Chloride (Saline Flush) 10 ml FLUSH ASDIRECTED PRN PRN Reason: Keep Vein Open Last Admin: 02/23/18 18:11 Dose: 10 ml Sodium Chloride (Saline Flush) 2.5 ml FLUSH ASDIRECTED PRN PRN Reason: Keep Vein Open Last Admin: 02/23/18 18:12 Dose: 2.5 ml Discontinued Medications Acetaminophen (Tylenol) 650 mg RECTAL Q6H PRN PRN Reason: Pain Last Admin: 02/26/18 01:24 Dose: 650 mg Benzocaine (Hurricaine One 20%) 2 each MUCMEM ONETIME ONE Stop: 02/23/18 20:28 Last Admin: 02/23/18 20:53 Dose: 2 each Bisacodyl (Dulcolax) 10 mg RECTAL ONETIME ONE Stop: 02/23/18 20:39 Last Admin: 02/23/18 20:43 Dose: 10 mg Diazepam (Valium) 2 mg IV DAILY PRN PRN Reason: Spasms Last Admin: 02/24/18 09:46 Dose: 2 mg Ephedrine Sulfate (Ephedrine Sulfate) Confirm Administered Dose 50 mg .ROUTE .STK-MED ONE Stop: 02/24/18 00:35 Fentanyl (Sublimaze) Confirm Administered Dose 250 mcg .ROUTE .STK-MED ONE Stop: 02/23/18 23:30 Fentanyl (Sublimaze) 50 mcg IVPUSH Q5M PRN PRN Reason: Pain (severe 7-10) Stop: 02/25/18 00:44 Last Admin: 02/24/18 03:25 Dose: 50 mcg Fentanyl (Sublimaze) Confirm Administered Dose 100 mcg .ROUTE .STK-MED ONE Stop: 02/24/18 01:38 Glycopyrrolate (Robinul) Confirm Administered Dose 0.4 mg .ROUTE .STK-MED ONE Stop: 02/24/18 02:25 Sodium Chloride (Normal Saline) 1,000 mls @ 999 mls/hr IV STAT ONE Stop: 02/23/18 19:05 Last Admin: 02/23/18 18:17 Dose: 999 mls/hr Lactated Ringer's (Ringers, Lactated) 1,000 mls @ 150 mls/hr IV ASDIRECTED [facility] Last Infusion: 02/27/18 05:16 Dose: 150 mls/hr Cefoxitin Sodium 2 gm/ Sodium (Chloride) 50 mls @ 100 mls/hr IV ONETIME ONE Stop: 02/23/18 23:32 Last Admin: 02/23/18 23:12 Dose: Not Given Levofloxacin/Dextrose 750 mg/ (Premix) 150 mls @ 100 mls/hr IV ONETIME ONE Stop: 02/24/18 00:36 Last Admin: 02/23/18 23:15 Dose: 100 mls/hr Lactated Ringer's (Ringers, Lactated) 1,000 mls @ 150 mls/hr IV ASDIRECTED [facility] Last Admin: 02/27/18 05:17 Dose: 150 mls/hr Iopamidol (Isovue Multipack-370 (76%)) 100 ml IVPUSH ONETIME STA Stop: 02/23/18 19:15 Last Admin: 02/23/18 19:15 Dose: 100 ml Ketorolac Tromethamine (Toradol) 30 mg IVPUSH ONETIME ONE Stop: 02/23/18 18:23 Last Admin: 02/23/18 18:29 Dose: 30 mg Lidocaine (Xylocaine-Mpf 2%) Confirm Administered Dose 5 ml .ROUTE .STK-MED ONE Stop: 02/23/18 23:30 Lorazepam (Ativan) 2 mg IVPUSH ONETIME ONE Stop: 02/23/18 22:53 Last Admin: 02/23/18 23:08 Dose: 2 mg Lorazepam (Ativan) Confirm Administered Dose 2 mg .ROUTE .STK-MED ONE Stop: 02/23/18 22:57 Last Admin: 02/23/18 23:11 Dose: 2 mg Midazolam HCl (Versed 1 Mg/Ml) Confirm Administered Dose 2 mg .ROUTE .STK-MED ONE Stop: 02/23/18 23:30 Morphine Sulfate (Morphine) 2 mg IVPUSH ONETIME ONE Stop: 02/23/18 19:31 Last Admin: 02/23/18 19:37 Dose: 2 mg Morphine Sulfate (Morphine) 2 mg IVPUSH ONETIME ONE Stop: 02/23/18 20:11 Last Admin: 02/23/18 20:14 Dose: 2 mg Morphine Sulfate (Morphine) 2 mg IM ONETIME ONE Stop: 02/23/18 22:53 Last Admin: 02/23/18 23:09 Dose: 2 mg Morphine Sulfate (Morphine) Confirm Administered Dose 2 mg .ROUTE .STK-MED ONE Stop: 02/23/18 22:57 Last Admin: 02/23/18 23:12 Dose: 2 mg Morphine Sulfate (Morphine Dermatology Technician 30 Mg In 30 Ml) 0 mg IV ASDIRECTED PRN; Protocol PRN Reason: Pain (severe 7-10) Last Admin: 02/25/18 17:05 Dose: 30 mg Neostigmine Methylsulfate (Neostigmine) Confirm Administered Dose 5 mg .ROUTE .STK-MED ONE Stop: 02/24/18 02:25 Ondansetron HCl (Zofran) 4 mg IVPUSH Q8H PRN PRN Reason: Nausea/Vomiting Last Admin: 02/23/18 23:40 Dose: 4 mg Ondansetron HCl (Zofran) Confirm Administered Dose 4 mg .ROUTE .STK-MED ONE Stop: 02/23/18 23:30 Oxycodone/Acetaminophen (Percocet 325-5 Mg) 1 tab PO Q6H PRN PRN Reason: Breakthrough Pain Last Admin: 02/23/18 21:30 Dose: 1 tab Phenylephrine HCl (Phenylephrine In Ns 100 Mcg/Ml) Confirm Administered Dose 1 mg .ROUTE .STK-MED ONE Stop: 02/24/18 00:34 Propofol (Diprivan 20 Ml) Confirm Administered Dose 200 mg .ROUTE .STK-MED ONE Stop: 02/23/18 23:30 Rocuronium [place] (Zemuron) Confirm Administered Dose 100 mg .ROUTE .STK-MED ONE Stop: 02/23/18 23:30 Succinylcholine Chloride (Quelicin) Confirm Administered Dose 200 mg .ROUTE .STK -MED ONE Stop: 02/23/18 23:30 - Exam Wound/Incisions: Healing Well, No Drainage General: Alert, Oriented HEENT: Pupils Equal Lungs: Normal Respiratory Effort Cardiovascular: Regular Rate GI/Abdominal Exam: Soft, Non-Tender, No Distention Extremities: Normal Inspection Skin: Warm, Dry, Intact Neurological: No New Focal Deficit - Problem List & Annotations (1) Obstructed internal hernia Status: Acute Current Visit: Yes (2) Intestinal obstruction SNOMED Code(s): 78473839 Code(s): K56.609 - UNSP INTESTNL OBST, UNSP TO PARTIAL VERSUS COMPLETE OBST Status: Acute Current Visit: Yes - Problem List Review Problem List Initiated/Reviewed/Updated: Yes - My Orders Last 24 Hours: Active Orders 24 hr Category Date Time Status Communication Order [RC] ROUTINE Care 02/26/18 10:32 Active May Shower [RC] ASDIRECTED Care 02/27/18 06:54 Active Clear Liquid Diet [DIET] Diet 02/26/18 Dinner Active CULTURE BLOOD [BC] Stat Lab 02/26/18 09:18 Results CULTURE BLOOD [BC] Stat Lab 02/26/18 09:28 Results Acetaminophen/oxyCODONE [Percocet 325-5 MG] Med 02/26/18 12:18 Active 2 tab PO Q4H PRN Cyclobenzaprine [Flexeril] Med 02/26/18 12:18 Active 5 mg PO TID PRN Docusate Sodium/Sennosides [Senokot-S] Med 02/27/18 21:00 Active 2 each PO BEDTIME Ketorolac [Toradol] Med 02/26/18 12:24 Active 10 mg PO Q6H PRN Morphine Med 02/26/18 12:18 Active 2 mg IVPUSH Q1H PRN Polyethylene Glycol 3350 [MiraLAX] Med 02/26/18 21:00 Active 17 gm PO BEDTIME Blood Culture x2 Reflex Set [OM.PC] Stat Oth 02/26/18 09:04 Ordered NG [Nasogastric Orogastric Tube Removal] [OM.PC] Oth 02/26/18 12:20 Ordered Routine Medication Orders Cyclobenzaprine HCl (Flexeril) 5 mg PO TID PRN PRN Reason: muscle spasm Ketorolac Tromethamine (Toradol) 10 mg PO Q6H PRN PRN Reason: Pain Stop: 03/03/18 12:25 Morphine Sulfate (Morphine) 2 mg IVPUSH Q1H PRN PRN Reason: Abdominal Pain Last Admin: 02/26/18 18:50 Dose: 2 mg Ondansetron HCl (Zofran) 4 mg IVPUSH Q8H PRN PRN Reason: Nausea/Vomiting Oxycodone/Acetaminophen (Percocet 325-5 Mg) 2 tab PO Q4H PRN PRN Reason: Abdominal Pain Last Admin: 02/27/18 05:14 Dose: 2 tab Admin: 02/26/18 23:02 Dose: 2 tab Admin: 02/26/18 17:32 Dose: 2 tab Admin: 02/26/18 13:21 Dose: 2 tab Pantoprazole Sodium (Protonix Iv) 40 mg IVPUSH DAILY [facility] Last Admin: 02/27/18 09:13 Dose: 40 mg Admin: 02/26/18 08:19 Dose: 40 mg Admin: 02/25/18 10:10 Dose: 40 mg Admin: 02/24/18 08:18 Dose: 40 mg Admin: 02/23/18 21:21 Dose: 40 mg Phenol/Menthol (Chloraseptic Throat [place]) 1 ml MUCMEM Q4H PRN PRN Reason: Sore Throat Polyethylene Glycol (Miralax) 17 gm PO BEDTIME ALEXANDRA Last Admin: 02/26/18 22:30 Dose: 17 gm Senna/Docusate Sodium (Senokot-S) 2 each PO BEDTIME [facility] Sodium Chloride (Saline Flush) 10 ml FLUSH ASDIRECTED PRN PRN Reason: Keep Vein Open Last Admin: 02/23/18 18:11 Dose: 10 ml Sodium Chloride (Saline Flush) 2.5 ml FLUSH ASDIRECTED PRN PRN Reason: Keep Vein Open Last Admin: 02/23/18 18:12 Dose: 2.5 ml - Plan Plan (Free Text/Narrative):: Patient had NG removed yesterday. He is tolerating a clear liquid diet. No nausea or vomiting. He is ambulatory. Just awaiting return of bowel function. No flatus yet. Pain: IV dilaudid prn, po percocet and toradol prn pain, flexeril prn muscle spasms CV: Stable Pulmonary: Encourage out of bed activity and IS use. GI: Clear liquid diet until passing flatus. multivitamin today. Renal: Urine output adequate and tolerating clear liquid diet. Discontinue IV fluids. ID: No evidence of infection. No need to check CBC or BMP in the mornings unless be he becomes clinically unstable. Px: SCDs, will give lovenox daily
[2018-02-27] MEDS: Enoxaparin 40 MG/0.4 ML Syringe SUBCUT SCH (11:21)
[2018-02-27] MEDS: Multivitamin Tab PO SCH (11:21)
[2018-02-27] MEDS ORDERED: Docusate Sodium/Sennosides Tab PO SCH (21:00)
[2018-02-27] MEDS: Polyethylene Glycol 3350 Powder 17 GM Packet PO SCH (21:09)
[2018-02-28] MEDS: Acetaminophen/oxyCODONE 325-5 MG Tab PO PRN ×2 (04:43→13:27)
[2018-02-28] MEDS: Pantoprazole 40 MG Vial IVPUSH SCH (09:27)
[2018-02-28] MEDS: Multivitamin Tab PO SCH (09:27)
[2018-02-28] MEDS ORDERED: Magnesium Citrate Solution 296 ML Bottle PO ONE (09:36)
[2018-02-28] MEDS ORDERED: Bisacodyl 10 MG Supp RECTAL PRN (09:38)
--- NOTE | 2018-02-28 09:44 | PCM.SURGPN ---
- General Info Date of Service: 02/28/18 Date of Surgery/Procedure: 02/24/18 POD#: 4 Functional Status: Reports: Pain Controlled, Ambulating, Urinating - Review of Systems General: Reports: No Symptoms Pulmonary: Reports: No Symptoms Cardiovascular: Reports: No Symptoms Gastrointestinal: Reports: No Symptoms - Patient Data Vitals - Most Recent: Last Vital Signs Temp 36.9 C 02/28/18 04:00 Pulse 84 02/28/18 04:00 Resp 16 02/28/18 04:00 BP 136/67 02/28/18 04:00 Pulse Ox 96 02/28/18 04:00 Weight - Most Recent: 86.818 kg I&O - Last 24 Hours: Intake & Output 02/27/18 02/28/18 02/28/18 22:59 06:59 14:59 Intake Total 915 600 Output Total 400 Balance 915 200 Emeka Results Last 24 Hrs: Microbiology 02/26/18 09:28 Aerobic Blood Culture - Preliminary Blood - Venous - Lab Draw NO GROWTH AFTER 2 DAYS Anaerobic Blood Culture - Preliminary NO GROWTH AFTER 2 DAYS 02/26/18 09:18 Aerobic Blood Culture - Preliminary Blood - Venous NO GROWTH AFTER 2 DAYS Anaerobic Blood Culture - Preliminary NO GROWTH AFTER 2 DAYS Med Orders - Current: Current Medications Bisacodyl (Dulcolax) 10 mg RECTAL BID PRN PRN Reason: Constipation Cyclobenzaprine HCl (Flexeril) 5 mg PO TID PRN PRN Reason: muscle spasm Enoxaparin Sodium (Lovenox) 40 mg SUBCUT Q24H [facility] Last Admin: 02/27/18 11:21 Dose: 40 mg Ketorolac Tromethamine (Toradol) 10 mg PO Q6H PRN PRN Reason: Pain Stop: 03/03/18 12:25 Magnesium Citrate (Citrate Of Magnesia) 296 ml PO ONETIME ONE Stop: 02/28/18 09:37 Morphine Sulfate (Morphine) 2 mg IVPUSH Q1H PRN PRN Reason: Abdominal Pain Last Admin: 02/26/18 18:50 Dose: 2 mg Multivitamins/Minerals/Vitamin C (Tab-A-Jairo) 1 tab PO DAILY [facility] Last Admin: 02/28/18 09:27 Dose: 1 tab Ondansetron HCl (Zofran) 4 mg IVPUSH Q8H PRN PRN Reason: Nausea/Vomiting Oxycodone/Acetaminophen (Percocet 325-5 Mg) 2 tab PO Q4H PRN PRN Reason: Abdominal Pain Last Admin: 02/28/18 04:43 Dose: 2 tab Pantoprazole Sodium (Protonix Iv) 40 mg IVPUSH DAILY [facility] Last Admin: 02/28/18 09:27 Dose: 40 mg Phenol/Menthol (Chloraseptic Throat [place]) 1 ml MUCMEM Q4H PRN PRN Reason: Sore Throat Polyethylene Glycol (Miralax) 17 gm PO BEDTIME [facility] Last Admin: 02/27/18 21:09 Dose: 17 gm Senna/Docusate Sodium (Senokot-S) 2 each PO BEDTIME [facility] Last Admin: 02/27/18 21:06 Dose: 2 each Sodium Chloride (Saline Flush) 10 ml FLUSH ASDIRECTED PRN PRN Reason: Keep Vein Open Last Admin: 02/23/18 18:11 Dose: 10 ml Sodium Chloride (Saline Flush) 2.5 ml FLUSH ASDIRECTED PRN PRN Reason: Keep Vein Open Last Admin: 02/23/18 18:12 Dose: 2.5 ml Discontinued Medications Acetaminophen (Tylenol) 650 mg RECTAL Q6H PRN PRN Reason: Pain Last Admin: 02/26/18 01:24 Dose: 650 mg Benzocaine (Hurricaine One 20%) 2 each MUCMEM ONETIME ONE Stop: 02/23/18 20:28 Last Admin: 02/23/18 20:53 Dose: 2 each Bisacodyl (Dulcolax) 10 mg RECTAL ONETIME ONE Stop: 02/23/18 20:39 Last Admin: 02/23/18 20:43 Dose: 10 mg Diazepam (Valium) 2 mg IV DAILY PRN PRN Reason: Spasms Last Admin: 02/24/18 09:46 Dose: 2 mg Ephedrine Sulfate (Ephedrine Sulfate) Confirm Administered Dose 50 mg .ROUTE .STK-MED ONE Stop: 02/24/18 00:35 Fentanyl (Sublimaze) Confirm Administered Dose 250 mcg .ROUTE .STK-MED ONE Stop: 02/23/18 23:30 Fentanyl (Sublimaze) 50 mcg IVPUSH Q5M PRN PRN Reason: Pain (severe 7-10) Stop: 02/25/18 00:44 Last Admin: 02/24/18 03:25 Dose: 50 mcg Fentanyl (Sublimaze) Confirm Administered Dose 100 mcg .ROUTE .STK-MED ONE Stop: 02/24/18 01:38 Glycopyrrolate (Robinul) Confirm Administered Dose 0.4 mg .ROUTE .STK-MED ONE Stop: 02/24/18 02:25 Sodium Chloride (Normal Saline) 1,000 mls @ 999 mls/hr IV STAT ONE Stop: 02/23/18 19:05 Last Admin: 02/23/18 18:17 Dose: 999 mls/hr Lactated Ringer's (Ringers, Lactated) 1,000 mls @ 150 mls/hr IV ASDIRECTED [facility] Last Infusion: 02/27/18 05:16 Dose: 150 mls/hr Cefoxitin Sodium 2 gm/ Sodium (Chloride) 50 mls @ 100 mls/hr IV ONETIME ONE Stop: 02/23/18 23:32 Last Admin: 02/23/18 23:12 Dose: Not Given Levofloxacin/Dextrose 750 mg/ (Premix) 150 mls @ 100 mls/hr IV ONETIME ONE Stop: 02/24/18 00:36 Last Admin: 02/23/18 23:15 Dose: 100 mls/hr Lactated Ringer's (Ringers, Lactated) 1,000 mls @ 150 mls/hr IV ASDIRECTED [facility] Last Admin: 02/27/18 05:17 Dose: 150 mls/hr Iopamidol (Isovue Multipack-370 (76%)) 100 ml IVPUSH ONETIME STA Stop: 02/23/18 19:15 Last Admin: 02/23/18 19:15 Dose: 100 ml Ketorolac Tromethamine (Toradol) 30 mg IVPUSH ONETIME ONE Stop: 02/23/18 18:23 Last Admin: 02/23/18 18:29 Dose: 30 mg Lidocaine (Xylocaine-Mpf 2%) Confirm Administered Dose 5 ml .ROUTE .STK-MED ONE Stop: 02/23/18 23:30 Lorazepam (Ativan) 2 mg IVPUSH ONETIME ONE Stop: 02/23/18 22:53 Last Admin: 02/23/18 23:08 Dose: 2 mg Lorazepam (Ativan) Confirm Administered Dose 2 mg .ROUTE .STK-MED ONE Stop: 02/23/18 22:57 Last Admin: 02/23/18 23:11 Dose: 2 mg Midazolam HCl (Versed 1 Mg/Ml) Confirm Administered Dose 2 mg .ROUTE .STK-MED ONE Stop: 02/23/18 23:30 Morphine Sulfate (Morphine) 2 mg IVPUSH ONETIME ONE Stop: 02/23/18 19:31 Last Admin: 02/23/18 19:37 Dose: 2 mg Morphine Sulfate (Morphine) 2 mg IVPUSH ONETIME ONE Stop: 02/23/18 20:11 Last Admin: 02/23/18 20:14 Dose: 2 mg Morphine Sulfate (Morphine) 2 mg IM ONETIME ONE Stop: 02/23/18 22:53 Last Admin: 02/23/18 23:09 Dose: 2 mg Morphine Sulfate (Morphine) Confirm Administered Dose 2 mg .ROUTE .STK-MED ONE Stop: 02/23/18 22:57 Last Admin: 02/23/18 23:12 Dose: 2 mg Morphine Sulfate (Morphine Equipment Validation Specialist 30 Mg In 30 Ml) 0 mg IV ASDIRECTED PRN; Protocol PRN Reason: Pain (severe 7-10) Last Admin: 02/25/18 17:05 Dose: 30 mg Neostigmine Methylsulfate (Neostigmine) Confirm Administered Dose 5 mg .ROUTE .STK-MED ONE Stop: 02/24/18 02:25 Ondansetron HCl (Zofran) 4 mg IVPUSH Q8H PRN PRN Reason: Nausea/Vomiting Last Admin: 02/23/18 23:40 Dose: 4 mg Ondansetron HCl (Zofran) Confirm Administered Dose 4 mg .ROUTE .STK-MED ONE Stop: 02/23/18 23:30 Oxycodone/Acetaminophen (Percocet 325-5 Mg) 1 tab PO Q6H PRN PRN Reason: Breakthrough Pain Last Admin: 02/23/18 21:30 Dose: 1 tab Phenylephrine HCl (Phenylephrine In Ns 100 Mcg/Ml) Confirm Administered Dose 1 mg .ROUTE .STK-MED ONE Stop: 02/24/18 00:34 Propofol (Diprivan 20 Ml) Confirm Administered Dose 200 mg .ROUTE .STK-MED ONE Stop: 02/23/18 23:30 Rocuronium [place] (Zemuron) Confirm Administered Dose 100 mg .ROUTE .STK-MED ONE Stop: 02/23/18 23:30 Succinylcholine Chloride (Quelicin) Confirm Administered Dose 200 mg .ROUTE .STK -MED ONE Stop: 02/23/18 23:30 - Exam Wound/Incisions: Healing Well, Dressing Dry and Intact General: Alert, Oriented HEENT: Pupils Equal, Pupils Reactive Lungs: Normal Respiratory Effort Cardiovascular: Regular Rate GI/Abdominal Exam: Soft, Non-Tender, No Distention, Other (Small amount of ecchymosis over the incision. No fluid collection or palpable hematoma ) Extremities: Normal Inspection, Normal Range of Motion - Problem List & Annotations (1) Obstructed internal hernia Status: Acute Current Visit: Yes (2) Intestinal obstruction SNOMED Code(s): 53679470 Code(s): K56.609 - UNSP INTESTNL OBST, UNSP TO PARTIAL VERSUS COMPLETE OBST Status: Acute Current Visit: Yes - Problem List Review Problem List Initiated/Reviewed/Updated: Yes - My Orders Last 24 Hours: Active Orders 24 hr Category Date Time Status Bisacodyl [Dulcolax] Med 02/28/18 09:38 Ordered 10 mg RECTAL BID PRN Docusate Sodium/Sennosides [Senokot-S] Med 02/27/18 21:00 Active 2 each PO BEDTIME Enoxaparin [Lovenox] Med 02/27/18 10:00 Active 40 mg SUBCUT Q24H Magnesium Citrate [Citrate of Magnesia] Med 02/28/18 09:36 Once 296 ml PO ONETIME ONE Multivitamins [Tab-A-Jairo] Med 02/27/18 10:00 Active 1 tab PO DAILY Medication Orders Bisacodyl (Dulcolax) 10 mg RECTAL BID PRN PRN Reason: Constipation Cyclobenzaprine HCl (Flexeril) 5 mg PO TID PRN PRN Reason: muscle spasm Enoxaparin Sodium (Lovenox) 40 mg SUBCUT Q24H [facility] Last Admin: 02/27/18 11:21 Dose: 40 mg Ketorolac Tromethamine (Toradol) 10 mg PO Q6H PRN PRN Reason: Pain Stop: 03/03/18 12:25 Magnesium Citrate (Citrate Of Magnesia) 296 ml PO ONETIME ONE Stop: 02/28/18 09:37 Morphine Sulfate (Morphine) 2 mg IVPUSH Q1H PRN PRN Reason: Abdominal Pain Last Admin: 02/26/18 18:50 Dose: 2 mg Multivitamins/Minerals/Vitamin C (Tab-A-Jairo) 1 tab PO DAILY [facility] Last Admin: 02/28/18 09:27 Dose: 1 tab Admin: 02/27/18 11:21 Dose: 1 tab Ondansetron HCl (Zofran) 4 mg IVPUSH Q8H PRN PRN Reason: Nausea/Vomiting Oxycodone/Acetaminophen (Percocet 325-5 Mg) 2 tab PO Q4H PRN PRN Reason: Abdominal Pain Last Admin: 02/28/18 04:43 Dose: 2 tab Admin: 02/27/18 22:31 Dose: 2 tab Admin: 02/27/18 17:36 Dose: 2 tab Admin: 02/27/18 11:15 Dose: 2 tab Admin: 02/27/18 05:14 Dose: 2 tab Admin: 02/26/18 23:02 Dose: 2 tab Admin: 02/26/18 17:32 Dose: 2 tab Admin: 02/26/18 13:21 Dose: 2 tab Pantoprazole Sodium (Protonix Iv) 40 mg IVPUSH DAILY [facility] Last Admin: 02/28/18 09:27 Dose: 40 mg Admin: 02/27/18 09:13 Dose: 40 mg Admin: 02/26/18 08:19 Dose: 40 mg Admin: 02/25/18 10:10 Dose: 40 mg Admin: 02/24/18 08:18 Dose: 40 mg Admin: 02/23/18 21:21 Dose: 40 mg Phenol/Menthol (Chloraseptic Throat [place]) 1 ml MUCMEM Q4H PRN PRN Reason: Sore Throat Polyethylene Glycol (Miralax) 17 gm PO BEDTIME [facility] Last Admin: 02/27/18 21:09 Dose: 17 gm Admin: 02/26/18 22:30 Dose: 17 gm Senna/Docusate Sodium (Senokot-S) 2 each PO BEDTIME [facility] Last Admin: 02/27/18 21:06 Dose: 2 each Sodium Chloride (Saline Flush) 10 ml FLUSH ASDIRECTED PRN PRN Reason: Keep Vein Open Last Admin: 02/23/18 18:11 Dose: 10 ml Sodium Chloride (Saline Flush) 2.5 ml FLUSH ASDIRECTED PRN PRN Reason: Keep Vein Open Last Admin: 02/23/18 18:12 Dose: 2.5 ml - Plan Plan (Free Text/Narrative):: -Scheduled toradol to hopefully cut down on narcotic use. -Magnesium citrate and prn dulcolax and enema for BM -Once passing gas or BM can have a regular diet. If tolerates can D/C home.
[2018-02-28] MEDS: Enoxaparin 40 MG/0.4 ML Syringe SUBCUT SCH (10:35)
== END 2018-02-28 18:15 | disposition home or self-care (01) | DRG 358 ==
LOC: MW.ED 17:51 → MW.MS 20:52 → OBSVTOIN 02-24 03:06 → MW.MS 02-24 03:50
PROVIDERS: ADMIT Surgery; ATTEND Surgery
PROC: 0DQV0ZZ Repair Mesentery, Open Approach (ICD-10-PCS; principal; 2018-02-24)
DX: K46.0 Unspecified abdominal hernia with obstruction, without gangrene (principal); I10 Essential (primary) hypertension; Z88.0 Allergy status to penicillin
CPT/HCPCS: 36415; 74018; 74018-26; 74177; 74177-26; 80053; 81001; 83605; 83690; 85025; 87040; 96361; 96365; 96372; 96374; 96375; 96376; 99285-25; A9270-GY; C9113; G0378; J0330; J1650; J1885; J1956; J2060; J2250; J2270; J2274; J2370; J2405; J2704; J3010; J3490; J7040; J7120; Q9967